=== PATIENT | male | born 1960 | race Caucasian/White ===

== ENCOUNTER 2020-10-06 12:37 | Inpatient (IN) | payer OTHER, SELFPAY ==
[2020-10-06 12:46] VITALS: BP 130/81; PULSE 120; RESP 50; TEMP 36.9; O2SAT 98
--- NOTE | 2020-10-06 12:48 | ECG_ITS ---
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 Measurements Intervals Bradley Rate: 115 P: 72 MA: 121 QRS: 34 QRSD: 98 T: 13 QT: 333 QTc: 462 Interpretive Statements SINUS TACHYCARDIA NONSPECIFIC ST & T-WAVE ABNORMALITY ABNORMAL RHYTHM ECG No previous ECG available for comparison Electronically Signed On 10-11-2020 16:14:26 CDT by Jerica Morrison M.D. [id number]
--- NOTE | 2020-10-06 12:48 | XR_ITS ---
WS: [id number] Portable AP upright chest, 10/06/2020 Clinical Data: AMS, COVID + Comparison: None. Findings: There is patchy opacity in the periphery of the left lower lung which may represent acute p neumonia. The right lung is clear. The heart is normal. The pulmonary vascularity is not increased. N o pneumothorax is seen. XR/XR chest 1V portable [id number] Impression: Patchy opacity in periphery of left lower lobe which may represent acute pneumo quirino.
--- NOTE | 2020-10-06 12:50 | CT_ITS ---
WS: [id number] CT scan of the head, 10/06/2020 Clinical Data: AMS Comparison: None. DLP: 1001.[address] scans at [facility] use at least one of these dose optimization techniques: automat ed exposure control; mA and/or kV adjustment per patient size (includes targeted exams where dose is matched to clinical indication); or iterative reconstruction. Findings: The ventricular system is minimally enlarged without shift. No recent infarct or hemorrhage is seen. There are no abnormal intracerebral masses. The cerebellum and brainstem are not remarkable. Bony windows of the skull and skull base show no fractures or erosions. The mastoid air cells, strategy intern al auditory canals, sella turcica, intraorbital contents, and paranasal sinuses are unremarkable. CT/CT head wo con* [id number] Impression: Minimal cerebral atrophy.
[2020-10-06 12:54] VITALS: PULSE 109; O2SAT 96
[2020-10-06 12:54] LABS: ABG PCO2 33.5 mmHg (35-45); ABG PH Result 7.26 (7.35-7.45); Arterial Blood Gas Hematocrit 55.2 % (42-52); Blood Gas Allen Test Pos; Blood Gas Sample Site Brachial, left; Blood Gas Sample Type Arterial; HCO3 ABG 14.9 mmol/L (22-26); Oxygen Device NRB
--- NOTE | 2020-10-06 13:18 | ED_ITS ---
Documented by User: Avni Hutton MD, [facility] [place] 10/20/20 11:32 HPI - SOB/Dyspnea General: Chief Complaint: General Medical Stated Complaint: COVID +/ RESPIRATORY DISTRESS Time Seen by Provider: 10/06/20 12:47 Source: EMS Mode of arrival: EMS Limitations: altered mental status History of Present Illness: HPI Narrative: Patient is a 59-year-old male who was brought into the emergency department via EMS. When EMS arrived at the patient's place of residence police and fire department had been called prior to they have been called. Patient has a who is currently on admission and he is intubated in this facility for COVID-19. Therefore the patient has been home alone. He was also diagnosed with COVID-19, last known well is unknown. He was altered and unable to give a history to EMS and he is currently the same way now. He does not answer to any questions and moans when he is touched or moved. He was hypoxic when EMS arrived and brought him in on a nonrebreather and his oxygen saturations were in the 90s on the nonrebreather. Review of Systems General: Reports: ROS unobtainable due to mental status [facility] ED PFSH: Social History Smoking and tobacco status: never smoked Alcohol intake: never Physical Exam Const: COMMON NORMALS: no acute distress, average body habitus, no limitations, healthy appearing and well nourished HENMT: COMMON NORMALS: normocephalic, atraumatic and moist oral mucous membranes HEAD & SCALP: normocephalic and atraumatic Eye: COMMON NORMALS: Equal, round and reactive pupils present, EOMs intact bilaterally, conjunctivae normal and no scleral icterus CONJUNCTIVA: Yes conjunctivae normal PUPIL: Yes Equal, round and reactive pupils present Neck/C-Spine: COMMON NORMALS: no meningeal signs and no JVD Resp: COMMON NORMALS: normal respiratory effort, No retractions, No use of accessory muscles, clear to auscultation bilaterally and percussion normal EFFORT & INSPECTION: Yes tachypneic AUSCULTATION: clear to auscultation bilaterally PERCUSSION: percussion normal Cardio: COMMON NORMALS: no JVD, regular rhythm, S1 normal heart sound present, S2 normal heart sound present, No gallops present (Cardio), No clicks present (Cardio), No murmurs present (Cardio), No rub (Cardio) and Peripheral pulses 2+ throughout RATE: tachycardic RHYTHM: regular rhythm HEART SOUNDS: S1 normal heart sound present and S2 normal heart sound present PERIPHERAL PULSES: Peripheral pulses 2+ throughout GI: COMMON NORMALS: Normal to inspection, nondistended, normoactive bowel sounds present, Soft to palpation, non-tender, No hepatosplenomegaly present, no masses and no bruits PALPATION: Yes Soft to palpation and Yes No hepatosplenomegaly present Extremity: COMMON NORMALS: normal to inspection, full ROM, capillary refill normal, no calf tenderness and no pedal edema Neuro: SENSORIUM/ORIENTATION: Yes somnolent MENINGEAL SIGNS: Yes no meningeal signs Skin: COMMON NORMALS: no rashes or lesions noted, no wounds, turgor normal, no jaundice, no petechiae and no mottling GENERAL SKIN EXAM: no rashes or lesions noted and turgor normal Course Vital Signs: Vital signs: Vital Signs Temperature 106.5 F H 10/08/20 02:00 Pulse Rate 0 L 10/08/20 02:30 Respiratory Rate 23 H 10/08/20 00:00 Blood Pressure 72/41 10/08/20 02:00 Pulse Oximetry 85 L 10/08/20 02:00 MDM - SOB/Dyspnea MDM Narrative: Medical decision making narrative: This 60-year-old male was brought into the emergency department by EMS in respiratory distress. A pparently his is an admission in this facility with COVID-19 and is intubated. The patient had been causing his via video conference. When he had not called in a few days the nurses in the intensive care unit got concerned on how the police do a well check visit on the patient. They found him altered, naked and on the floor and in respiratory distress. An ambulance was called and he was brought into this facility. He tested positive for Covid and he was pretty sick, requiring oxygenation via nonrebreather at first and then heated high flow. Patient is signed out to Dr. Gar to assume care. Medical Records: Attestation: I reviewed the patient's medical records. Lab Data: Attestation: I reviewed the patient's lab results. Labs: Lab Results 10/06/20 10/06/20 10/06/20 Range/Units 12:20 12:20 12:20 WBC 25.1 H (4.0-10.0) 10^3/ uL RBC 6.78 H (4.1-5.3) 10^6/u L Hgb 19.5 H (11.7-16.6) g/dL Hct 68.5 H* (42.0-52.0) % MCV 101.0 H (80-94) fL MCH 28.8 (28.0-34.0) pg MCHC 28.5 L (30.0-36.0) g/dL RDW 13.8 (12.1-15.1) % Plt Count 415 H (130-400) 10^3/c mm MPV 12.3 H (7.4-10.4) fL Neut % (Auto) 85.1 % Lymph % (Auto) 6.3 % [place] % (Auto) 6.3 % Eos % (Auto) 0.0 % Baso % (Auto) 0.4 % Neut # (Auto) 21.34 H (1.8-7.7) 10^3/u L Lymph # (Auto) 1.6 (0.8-4.8) 10^3/u L [place] # (Auto) 1.6 H (0.2-0.9) 10^3/u L Eos # (Auto) 0.0 (0.0-0.8) 10^3/u L Baso # (Auto) 0.1 (0.0-0.1) 10^3/u L Nucleated RBC % (a uto) 0 % Nucleated RBCs # 0.0 /100WBC Fibrinogen (174-498) mg/dL D-Dimer (0-0.59) ug/mIFE U Specimen Type Sample Site ABG pH (7.35-7.45) ABG pCO2 (35-45) mmHg ABG pO2 (80.0-100.0) mmH g ABG HCO3 (22-26) mmol/L ABG O2 Saturation ABG Base Excess (-2.0-2.0) mmol/ L Desmond Test A-a O2 Gradient (5-10) mmHg Hematocrit (42-52) % Hgb O2 Saturation (95-100) % Carboxyhemoglobin (0.4-20.1) %THgb Methemoglobin (0.4-1.5) % Total Hemoglobin (14-18) g/dL Ionized Calcium (1.1-1.4) mmol/L O2 Delivery Device O2 Liters/Min % Transcription Manager ID Sodium 164 H* (136-145) mmol/L Potassium 4.2 (3.5-5.1) mmol/L Chloride 116 H (98-107) mmol/L Carbon Dioxide 17 L (22-29) mmol/L Anion Gap 35.2 H (5-19) BUN 66 H (8-23) mg/dL Creatinine 2.2 H (0.7-1.2) mg/dL GFR Calculation 30.5 L (90-130) mL/min Glucose 1232 H* (65-115) mg/dL POC Glucose (70-110) mg/dL Calculated Osmolal ity 420 H (285-295) mOsm/k g Lactic Acid (0.5-2.2) mmol/L Lactic Acid (Sepsi s) (0.5-2.2) mmol/L Lactate (0.5-2.2) mmol/L Calcium 11.2 H (8.5-10.5) mg/dL Total Bilirubin 0.4 (0.15-1.2) mg/dL AST 24 (0-40) U/L ALT 29 (0-41) U/L Alkaline Phosphata se 172 H (40-130) IU/L Creatine Kinase 375 H* (39-308) U/L C-Reactive Protein 88.8 H (0.0-4.9) mg/L NT-Pro-B Natriuret Pep 364 H (0-125) pg/mL Total Protein 8.6 (6.6-8.7) g/dL Albumin 4.2 (3.5-5.2) g/dL Globulin 4.4 (1.3-4.6) g/dL Procalcitonin 0.45 (0-0.5) ng/mL Urine Color (Yellow) Urine Appearance (CLEAR) Urine pH (5-7) Ur Specific Gravit y (1.005-1.030) Urine Protein (Negative) Urine Glucose (UA) (Normal) Urine Ketones (Negative) Urine Blood (Negative) Urine Nitrate (Negative) Urine Bilirubin (Negative) Urine Urobilinogen (Negative) mg/dL Ur Leukocyte Lucie ase (Negative) Urine RBC (0-2) /hpf Urine WBC (0-5) /hpf Ur Squamous Epith Cells (0-5) /hpf Amorphous Sediment Urine Bacteria (NONE) /hpf Serum Ketones Negative (Negative) SARS-CoV-2 Ag (Rap id) (Negative) 10/06/20 10/06/20 10/06/20 Range/Units 12:40 13:35 13:35 WBC (4.0-10.0) 10^3/ uL RBC (4.1-5.3) 10^6/u L Hgb (11.7-16.6) g/dL Hct (42.0-52.0) % MCV (80-94) fL MCH (28.0-34.0) pg MCHC (30.0-36.0) g/dL RDW (12.1-15.1) % Plt Count (130-400) 10^3/c mm MPV (7.4-10.4) fL Neut % (Auto) % Lymph % (Auto) % [place] % (Auto) % Eos % (Auto) % Baso % (Auto) % Neut # (Auto) (1.8-7.7) 10^3/u L Lymph # (Auto) (0.8-4.8) 10^3/u L [place] # (Auto) (0.2-0.9) 10^3/u L Eos # (Auto) (0.0-0.8) 10^3/u L Baso # (Auto) (0.0-0.1) 10^3/u L Nucleated RBC % (a uto) % Nucleated RBCs # /100WBC Fibrinogen (174-498) mg/dL D-Dimer (0-0.59) ug/mIFE U Specimen Type Arterial Sample Site Brachial, left ABG pH 7.26 L (7.35-7.45) ABG pCO2 33.5 L (35-45) mmHg ABG pO2 166.0 H (80.0-100.0) mmH g ABG HCO3 14.9 L (22-26) mmol/L ABG O2 Saturation ABG Base Excess -11.0 L (-2.0-2.0) mmol/ L Desmond Test Pos A-a O2 Gradient (5-10) mmHg Hematocrit 55.2 H (42-52) % Hgb O2 Saturation (95-100) % Carboxyhemoglobin (0.4-20.1) %THgb Methemoglobin (0.4-1.5) % Total Hemoglobin (14-18) g/dL Ionized Calcium (1.1-1.4) mmol/L O2 Delivery Device Nrb O2 Liters/Min 15.0 % Transcription Manager ID Duner Sodium (136-145) mmol/L Potassium (3.5-5.1) mmol/L Chloride (98-107) mmol/L Carbon Dioxide (22-29) mmol/L Anion Gap (5-19) BUN (8-23) mg/dL Creatinine (0.7-1.2) mg/dL GFR Calculation (90-130) mL/min Glucose (65-115) mg/dL POC Glucose (70-110) mg/dL Calculated Osmolal ity (285-295) mOsm/k g Lactic Acid 5.4 H* (0.5-2.2) mmol/L Lactic Acid (Sepsi s) (0.5-2.2) mmol/L Lactate (0.5-2.2) mmol/L Calcium (8.5-10.5) mg/dL Total Bilirubin (0.15-1.2) mg/dL AST (0-40) U/L ALT (0-41) U/L Alkaline Phosphata se (40-130) IU/L Creatine Kinase (39-308) U/L C-Reactive Protein (0.0-4.9) mg/L NT-Pro-B Natriuret Pep (0-125) pg/mL Total Protein (6.6-8.7) g/dL Albumin (3.5-5.2) g/dL Globulin (1.3-4.6) g/dL Procalcitonin (0-0.5) ng/mL Urine Color Yellow (Yellow) Urine Appearance Clear (CLEAR) Urine pH 5 (5-7) Ur Specific Gravit y 1.005 (1.005-1.030) Urine Protein Neg (Negative) Urine Glucose (UA) 4+ H (Normal) Urine Ketones Negative (Negative) Urine Blood 2+ H (Negative) Urine Nitrate Negative (Negative) Urine Bilirubin Neg (Negative) Urine Urobilinogen Norm (Negative) mg/dL Ur Leukocyte Lucie ase Negative (Negative) Urine RBC 0-4 H (0-2) /hpf Urine WBC None (0-5) /hpf Ur Squamous Epith Cells 0-4 H (0-5) /hpf Amorphous Sediment Not Reportable Urine Bacteria 1+ H (NONE) /hpf Serum Ketones (Negative) SARS-CoV-2 Ag (Rap id) (Negative) 10/06/20 10/06/20 10/06/20 Range/Units 15:04 15:04 16:27 WBC (4.0-10.0) 10^3/ uL RBC (4.1-5.3) 10^6/u L Hgb (11.7-16.6) g/dL Hct (42.0-52.0) % MCV (80-94) fL MCH (28.0-34.0) pg MCHC (30.0-36.0) g/dL RDW (12.1-15.1) % Plt Count (130-400) 10^3/c mm MPV (7.4-10.4) fL Neut % (Auto) % Lymph % (Auto) % [place] % (Auto) % Eos % (Auto) % Baso % (Auto) % Neut # (Auto) (1.8-7.7) 10^3/u L Lymph # (Auto) (0.8-4.8) 10^3/u L [place] # (Auto) (0.2-0.9) 10^3/u L Eos # (Auto) (0.0-0.8) 10^3/u L Baso # (Auto) (0.0-0.1) 10^3/u L Nucleated RBC % (a uto) % Nucleated RBCs # /100WBC Fibrinogen 438 (174-498) mg/dL D-Dimer >= 20.00 H (0-0.59) ug/mIFE U Specimen Type Sample Site ABG pH (7.35-7.45) ABG pCO2 (35-45) mmHg ABG pO2 (80.0-100.0) mmH g ABG HCO3 (22-26) mmol/L ABG O2 Saturation ABG Base Excess (-2.0-2.0) mmol/ L Desmond Test A-a O2 Gradient (5-10) mmHg Hematocrit (42-52) % Hgb O2 Saturation (95-100) % Carboxyhemoglobin (0.4-20.1) %THgb Methemoglobin (0.4-1.5) % Total Hemoglobin (14-18) g/dL Ionized Calcium (1.1-1.4) mmol/L O2 Delivery Device O2 Liters/Min % Transcription Manager ID Sodium (136-145) mmol/L Potassium (3.5-5.1) mmol/L Chloride (98-107) mmol/L Carbon Dioxide (22-29) mmol/L Anion Gap (5-19) BUN (8-23) mg/dL Creatinine (0.7-1.2) mg/dL GFR Calculation (90-130) mL/min Glucose (65-115) mg/dL POC Glucose > 600 H* (70-110) mg/dL Calculated Osmolal ity (285-295) mOsm/k g Lactic Acid (0.5-2.2) mmol/L Lactic Acid (Sepsi s) 4.8 H* (0.5-2.2) mmol/L Lactate (0.5-2.2) mmol/L Calcium (8.5-10.5) mg/dL Total Bilirubin (0.15-1.2) mg/dL AST (0-40) U/L ALT (0-41) U/L Alkaline Phosphata se (40-130) IU/L Creatine Kinase (39-308) U/L C-Reactive Protein (0.0-4.9) mg/L NT-Pro-B Natriuret Pep (0-125) pg/mL Total Protein (6.6-8.7) g/dL Albumin (3.5-5.2) g/dL Globulin (1.3-4.6) g/dL Procalcitonin (0-0.5) ng/mL Urine Color (Yellow) Urine Appearance (CLEAR) Urine pH (5-7) Ur Specific Gravit y (1.005-1.030) Urine Protein (Negative) Urine Glucose (UA) (Normal) Urine Ketones (Negative) Urine Blood (Negative) Urine Nitrate (Negative) Urine Bilirubin (Negative) Urine Urobilinogen (Negative) mg/dL Ur Leukocyte Lucie ase (Negative) Urine RBC (0-2) /hpf Urine WBC (0-5) /hpf Ur Squamous Epith Cells (0-5) /hpf Amorphous Sediment Urine Bacteria (NONE) /hpf Serum Ketones (Negative) SARS-CoV-2 Ag (Rap id) (Negative) 10/06/20 10/06/20 10/06/20 Range/Units 17:34 17:35 18:31 WBC (4.0-10.0) 10^3/ uL RBC (4.1-5.3) 10^6/u L Hgb (11.7-16.6) g/dL Hct (42.0-52.0) % MCV (80-94) fL MCH (28.0-34.0) pg MCHC (30.0-36.0) g/dL RDW (12.1-15.1) % Plt Count (130-400) 10^3/c mm MPV (7.4-10.4) fL Neut % (Auto) % Lymph % (Auto) % [place] % (Auto) % Eos % (Auto) % Baso % (Auto) % Neut # (Auto) (1.8-7.7) 10^3/u L Lymph # (Auto) (0.8-4.8) 10^3/u L [place] # (Auto) (0.2-0.9) 10^3/u L Eos # (Auto) (0.0-0.8) 10^3/u L Baso # (Auto) (0.0-0.1) 10^3/u L Nucleated RBC % (a uto) % Nucleated RBCs # /100WBC Fibrinogen (174-498) mg/dL D-Dimer (0-0.59) ug/mIFE U Specimen Type Sample Site ABG pH (7.35-7.45) ABG pCO2 (35-45) mmHg ABG pO2 (80.0-100.0) mmH g ABG HCO3 (22-26) mmol/L ABG O2 Saturation ABG Base Excess (-2.0-2.0) mmol/ L Desmond Test A-a O2 Gradient (5-10) mmHg Hematocrit (42-52) % Hgb O2 Saturation (95-100) % Carboxyhemoglobin (0.4-20.1) %THgb Methemoglobin (0.4-1.5) % Total Hemoglobin (14-18) g/dL Ionized Calcium (1.1-1.4) mmol/L O2 Delivery Device O2 Liters/Min % Transcription Manager ID Sodium (136-145) mmol/L Potassium (3.5-5.1) mmol/L Chloride (98-107) mmol/L Carbon Dioxide (22-29) mmol/L Anion Gap (5-19) BUN (8-23) mg/dL Creatinine (0.7-1.2) mg/dL GFR Calculation (90-130) mL/min Glucose (65-115) mg/dL POC Glucose > 600 H* > 600 H* (70-110) mg/dL Calculated Osmolal ity (285-295) mOsm/k g Lactic Acid (0.5-2.2) mmol/L Lactic Acid (Sepsi s) (0.5-2.2) mmol/L Lactate (0.5-2.2) mmol/L Calcium (8.5-10.5) mg/dL Total Bilirubin (0.15-1.2) mg/dL AST (0-40) U/L ALT (0-41) U/L Alkaline Phosphata se (40-130) IU/L Creatine Kinase (39-308) U/L C-Reactive Protein (0.0-4.9) mg/L NT-Pro-B Natriuret Pep (0-125) pg/mL Total Protein (6.6-8.7) g/dL Albumin (3.5-5.2) g/dL Globulin (1.3-4.6) g/dL Procalcitonin (0-0.5) ng/mL Urine Color (Yellow) Urine Appearance (CLEAR) Urine pH (5-7) Ur Specific Gravit y (1.005-1.030) Urine Protein (Negative) Urine Glucose (UA) (Normal) Urine Ketones (Negative) Urine Blood (Negative) Urine Nitrate (Negative) Urine Bilirubin (Negative) Urine Urobilinogen (Negative) mg/dL Ur Leukocyte Lucie ase (Negative) Urine RBC (0-2) /hpf Urine WBC (0-5) /hpf Ur Squamous Epith Cells (0-5) /hpf Amorphous Sediment Urine Bacteria (NONE) /hpf Serum Ketones (Negative) SARS-CoV-2 Ag (Rap id) Negative (Negative) 10/06/20 10/06/20 10/06/20 Range/Units 18:43 18:43 20:05 WBC (4.0-10.0) 10^3/ uL RBC (4.1-5.3) 10^6/u L Hgb (11.7-16.6) g/dL Hct (42.0-52.0) % MCV (80-94) fL MCH (28.0-34.0) pg MCHC (30.0-36.0) g/dL RDW (12.1-15.1) % Plt Count (130-400) 10^3/c mm MPV (7.4-10.4) fL Neut % (Auto) % Lymph % (Auto) % [place] % (Auto) % Eos % (Auto) % Baso % (Auto) % Neut # (Auto) (1.8-7.7) 10^3/u L Lymph # (Auto) (0.8-4.8) 10^3/u L [place] # (Auto) (0.2-0.9) 10^3/u L Eos # (Auto) (0.0-0.8) 10^3/u L Baso # (Auto) (0.0-0.1) 10^3/u L Nucleated RBC % (a uto) % Nucleated RBCs # /100WBC Fibrinogen (174-498) mg/dL D-Dimer (0-0.59) ug/mIFE U Specimen Type Sample Site ABG pH (7.35-7.45) ABG pCO2 (35-45) mmHg ABG pO2 (80.0-100.0) mmH g ABG HCO3 (22-26) mmol/L ABG O2 Saturation ABG Base Excess (-2.0-2.0) mmol/ L Desmond Test A-a O2 Gradient (5-10) mmHg Hematocrit (42-52) % Hgb O2 Saturation (95-100) % Carboxyhemoglobin (0.4-20.1) %THgb Methemoglobin (0.4-1.5) % Total Hemoglobin (14-18) g/dL Ionized Calcium (1.1-1.4) mmol/L O2 Delivery Device O2 Liters/Min % Transcription Manager ID Sodium 169 H* (136-145) mmol/L Potassium 2.5 L* D (3.5-5.1) mmol/L Chloride 133 H (98-107) mmol/L Carbon Dioxide 17 L (22-29) mmol/L Anion Gap 21.5 H (5-19) BUN 65 H (8-23) mg/dL Creatinine 2.5 H (0.7-1.2) mg/dL GFR Calculation 26.3 L (90-130) mL/min Glucose 902 H* (65-115) mg/dL POC Glucose > 600 H* (70-110) mg/dL Calculated Osmolal ity 411 H (285-295) mOsm/k g Lactic Acid 4.9 H* (0.5-2.2) mmol/L Lactic Acid (Sepsi s) (0.5-2.2) mmol/L Lactate (0.5-2.2) mmol/L Calcium 9.0 (8.5-10.5) mg/dL Total Bilirubin (0.15-1.2) mg/dL AST (0-40) U/L ALT (0-41) U/L Alkaline Phosphata se (40-130) IU/L Creatine Kinase (39-308) U/L C-Reactive Protein (0.0-4.9) mg/L NT-Pro-B Natriuret Pep (0-125) pg/mL Total Protein (6.6-8.7) g/dL Albumin (3.5-5.2) g/dL Globulin (1.3-4.6) g/dL Procalcitonin (0-0.5) ng/mL Urine Color (Yellow) Urine Appearance (CLEAR) Urine pH (5-7) Ur Specific Gravit y (1.005-1.030) Urine Protein (Negative) Urine Glucose (UA) (Normal) Urine Ketones (Negative) Urine Blood (Negative) Urine Nitrate (Negative) Urine Bilirubin (Negative) Urine Urobilinogen (Negative) mg/dL Ur Leukocyte Lucie ase (Negative) Urine RBC (0-2) /hpf Urine WBC (0-5) /hpf Ur Squamous Epith Cells (0-5) /hpf Amorphous Sediment Urine Bacteria (NONE) /hpf Serum Ketones (Negative) SARS-CoV-2 Ag (Rap id) (Negative) 10/06/20 10/06/20 10/06/20 Range/Units 21:08 21:21 22:15 WBC (4.0-10.0) 10^3/ uL RBC (4.1-5.3) 10^6/u L Hgb (11.7-16.6) g/dL Hct (42.0-52.0) % MCV (80-94) fL MCH (28.0-34.0) pg MCHC (30.0-36.0) g/dL RDW (12.1-15.1) % Plt Count (130-400) 10^3/c mm MPV (7.4-10.4) fL Neut % (Auto) % Lymph % (Auto) % [place] % (Auto) % Eos % (Auto) % Baso % (Auto) % Neut # (Auto) (1.8-7.7) 10^3/u L Lymph # (Auto) (0.8-4.8) 10^3/u L [place] # (Auto) (0.2-0.9) 10^3/u L Eos # (Auto) (0.0-0.8) 10^3/u L Baso # (Auto) (0.0-0.1) 10^3/u L Nucleated RBC % (a uto) % Nucleated RBCs # /100WBC Fibrinogen (174-498) mg/dL D-Dimer (0-0.59) ug/mIFE U Specimen Type Arterial Sample Site Brachial, left ABG pH 7.35 (7.35-7.45) ABG pCO2 33.4 L (35-45) mmHg ABG pO2 103.0 H (80.0-100.0) mmH g ABG HCO3 18.4 L (22-26) mmol/L ABG O2 Saturation ABG Base Excess -6.1 L (-2.0-2.0) mmol/ L Desmond Test N/a A-a O2 Gradient (5-10) mmHg Hematocrit 48.4 (42-52) % Hgb O2 Saturation (95-100) % Carboxyhemoglobin (0.4-20.1) %THgb Methemoglobin (0.4-1.5) % Total Hemoglobin (14-18) g/dL Ionized Calcium (1.1-1.4) mmol/L O2 Delivery Device Nc O2 Liters/Min 10.0 % Transcription Manager ID Harkr Sodium (136-145) mmol/L Potassium (3.5-5.1) mmol/L Chloride (98-107) mmol/L Carbon Dioxide (22-29) mmol/L Anion Gap (5-19) BUN (8-23) mg/dL Creatinine (0.7-1.2) mg/dL GFR Calculation (90-130) mL/min Glucose (65-115) mg/dL POC Glucose > 600 H* (70-110) mg/dL Calculated Osmolal ity (285-295) mOsm/k g Lactic Acid (0.5-2.2) mmol/L Lactic Acid (Sepsi s) 5.2 H* (0.5-2.2) mmol/L Lactate (0.5-2.2) mmol/L Calcium (8.5-10.5) mg/dL Total Bilirubin (0.15-1.2) mg/dL AST (0-40) U/L ALT (0-41) U/L Alkaline Phosphata se (40-130) IU/L Creatine Kinase (39-308) U/L C-Reactive Protein (0.0-4.9) mg/L NT-Pro-B Natriuret Pep (0-125) pg/mL Total Protein (6.6-8.7) g/dL Albumin (3.5-5.2) g/dL Globulin (1.3-4.6) g/dL Procalcitonin (0-0.5) ng/mL Urine Color (Yellow) Urine Appearance (CLEAR) Urine pH (5-7) Ur Specific Gravit y (1.005-1.030) Urine Protein (Negative) Urine Glucose (UA) (Normal) Urine Ketones (Negative) Urine Blood (Negative) Urine Nitrate (Negative) Urine Bilirubin (Negative) Urine Urobilinogen (Negative) mg/dL Ur Leukocyte Lucie ase (Negative) Urine RBC (0-2) /hpf Urine WBC (0-5) /hpf Ur Squamous Epith Cells (0-5) /hpf Amorphous Sediment Urine Bacteria (NONE) /hpf Serum Ketones (Negative) SARS-CoV-2 Ag (Rap id) (Negative) 10/06/20 10/07/20 10/07/20 Range/Units 22:50 00:10 01:56 WBC (4.0-10.0) 10^3/ uL RBC (4.1-5.3) 10^6/u L Hgb (11.7-16.6) g/dL Hct (42.0-52.0) % MCV (80-94) fL MCH (28.0-34.0) pg MCHC (30.0-36.0) g/dL RDW (12.1-15.1) % Plt Count (130-400) 10^3/c mm MPV (7.4-10.4) fL Neut % (Auto) % Lymph % (Auto) % [place] % (Auto) % Eos % (Auto) % Baso % (Auto) % Neut # (Auto) (1.8-7.7) 10^3/u L Lymph # (Auto) (0.8-4.8) 10^3/u L [place] # (Auto) (0.2-0.9) 10^3/u L Eos # (Auto) (0.0-0.8) 10^3/u L Baso # (Auto) (0.0-0.1) 10^3/u L Nucleated RBC % (a uto) % Nucleated RBCs # /100WBC Fibrinogen (174-498) mg/dL D-Dimer (0-0.59) ug/mIFE U Specimen Type Sample Site ABG pH (7.35-7.45) ABG pCO2 (35-45) mmHg ABG pO2 (80.0-100.0) mmH g ABG HCO3 (22-26) mmol/L ABG O2 Saturation ABG Base Excess (-2.0-2.0) mmol/ L Desmond Test A-a O2 Gradient (5-10) mmHg Hematocrit (42-52) % Hgb O2 Saturation (95-100) % Carboxyhemoglobin (0.4-20.1) %THgb Methemoglobin (0.4-1.5) % Total Hemoglobin (14-18) g/dL Ionized Calcium (1.1-1.4) mmol/L O2 Delivery Device O2 Liters/Min % Transcription Manager ID Sodium (136-145) mmol/L Potassium (3.5-5.1) mmol/L Chloride (98-107) mmol/L Carbon Dioxide (22-29) mmol/L Anion Gap (5-19) BUN (8-23) mg/dL Creatinine (0.7-1.2) mg/dL GFR Calculation (90-130) mL/min Glucose (65-115) mg/dL POC Glucose > 600 H* > 600 H* 356 H (70-110) mg/dL Calculated Osmolal ity (285-295) mOsm/k g Lactic Acid (0.5-2.2) mmol/L Lactic Acid (Sepsi s) (0.5-2.2) mmol/L Lactate (0.5-2.2) mmol/L Calcium (8.5-10.5) mg/dL Total Bilirubin (0.15-1.2) mg/dL AST (0-40) U/L ALT (0-41) U/L Alkaline Phosphata se (40-130) IU/L Creatine Kinase (39-308) U/L C-Reactive Protein (0.0-4.9) mg/L NT-Pro-B Natriuret Pep (0-125) pg/mL Total Protein (6.6-8.7) g/dL Albumin (3.5-5.2) g/dL Globulin (1.3-4.6) g/dL Procalcitonin (0-0.5) ng/mL Urine Color (Yellow) Urine Appearance (CLEAR) Urine pH (5-7) Ur Specific Gravit y (1.005-1.030) Urine Protein (Negative) Urine Glucose (UA) (Normal) Urine Ketones (Negative) Urine Blood (Negative) Urine Nitrate (Negative) Urine Bilirubin (Negative) Urine Urobilinogen (Negative) mg/dL Ur Leukocyte Lucie ase (Negative) Urine RBC (0-2) /hpf Urine WBC (0-5) /hpf Ur Squamous Epith Cells (0-5) /hpf Amorphous Sediment Urine Bacteria (NONE) /hpf Serum Ketones (Negative) SARS-CoV-2 Ag (Rap id) (Negative) 10/07/20 10/07/20 10/07/20 Range/Units 02:46 03:19 05:00 WBC 24.0 H (4.0-10.0) 10^3/ uL RBC 5.70 H (4.1-5.3) 10^6/u L Hgb 16.5 (11.7-16.6) g/dL Hct 52.9 H (42.0-52.0) % MCV 92.8 D (80-94) fL MCH 28.9 (28.0-34.0) pg MCHC 31.2 D (30.0-36.0) g/dL RDW 13.7 (12.1-15.1) % Plt Count 250 (130-400) 10^3/c mm MPV 11.3 H (7.4-10.4) fL Neut % (Auto) 83.1 % Lymph % (Auto) 6.2 % [place] % (Auto) 9.3 % Eos % (Auto) 0.0 % Baso % (Auto) 0.3 % Neut # (Auto) 19.93 H (1.8-7.7) 10^3/u L Lymph # (Auto) 1.5 (0.8-4.8) 10^3/u L [place] # (Auto) 2.2 H (0.2-0.9) 10^3/u L Eos # (Auto) 0.0 (0.0-0.8) 10^3/u L Baso # (Auto) 0.1 (0.0-0.1) 10^3/u L Nucleated RBC % (a uto) 0 % Nucleated RBCs # 0.0 /100WBC Fibrinogen (174-498) mg/dL D-Dimer (0-0.59) ug/mIFE U Specimen Type Sample Site ABG pH (7.35-7.45) ABG pCO2 (35-45) mmHg ABG pO2 (80.0-100.0) mmH g ABG HCO3 (22-26) mmol/L ABG O2 Saturation ABG Base Excess (-2.0-2.0) mmol/ L Desmond Test A-a O2 Gradient (5-10) mmHg Hematocrit (42-52) % Hgb O2 Saturation (95-100) % Carboxyhemoglobin (0.4-20.1) %THgb Methemoglobin (0.4-1.5) % Total Hemoglobin (14-18) g/dL Ionized Calcium (1.1-1.4) mmol/L O2 Delivery Device O2 Liters/Min % Transcription Manager ID Sodium (136-145) mmol/L Potassium (3.5-5.1) mmol/L Chloride (98-107) mmol/L Carbon Dioxide (22-29) mmol/L Anion Gap (5-19) BUN (8-23) mg/dL Creatinine (0.7-1.2) mg/dL GFR Calculation (90-130) mL/min Glucose (65-115) mg/dL POC Glucose 208 H 196 H (70-110) mg/dL Calculated Osmolal ity (285-295) mOsm/k g Lactic Acid (0.5-2.2) mmol/L Lactic Acid (Sepsi s) (0.5-2.2) mmol/L Lactate (0.5-2.2) mmol/L Calcium (8.5-10.5) mg/dL Total Bilirubin (0.15-1.2) mg/dL AST (0-40) U/L ALT (0-41) U/L Alkaline Phosphata se (40-130) IU/L Creatine Kinase (39-308) U/L C-Reactive Protein (0.0-4.9) mg/L NT-Pro-B Natriuret Pep (0-125) pg/mL Total Protein (6.6-8.7) g/dL Albumin (3.5-5.2) g/dL Globulin (1.3-4.6) g/dL Procalcitonin (0-0.5) ng/mL Urine Color (Yellow) Urine Appearance (CLEAR) Urine pH (5-7) Ur Specific Gravit y (1.005-1.030) Urine Protein (Negative) Urine Glucose (UA) (Normal) Urine Ketones (Negative) Urine Blood (Negative) Urine Nitrate (Negative) Urine Bilirubin (Negative) Urine Urobilinogen (Negative) mg/dL Ur Leukocyte Lucie ase (Negative) Urine RBC (0-2) /hpf Urine WBC (0-5) /hpf Ur Squamous Epith Cells (0-5) /hpf Amorphous Sediment Urine Bacteria (NONE) /hpf Serum Ketones (Negative) SARS-CoV-2 Ag (Rap id) (Negative) 10/07/20 10/07/20 10/07/20 Range/Units 05:00 05:00 05:08 WBC (4.0-10.0) 10^3/ uL RBC (4.1-5.3) 10^6/u L Hgb (11.7-16.6) g/dL Hct (42.0-52.0) % MCV (80-94) fL MCH (28.0-34.0) pg MCHC (30.0-36.0) g/dL RDW (12.1-15.1) % Plt Count (130-400) 10^3/c mm MPV (7.4-10.4) fL Neut % (Auto) % Lymph % (Auto) % [place] % (Auto) % Eos % (Auto) % Baso % (Auto) % Neut # (Auto) (1.8-7.7) 10^3/u L Lymph # (Auto) (0.8-4.8) 10^3/u L [place] # (Auto) (0.2-0.9) 10^3/u L Eos # (Auto) (0.0-0.8) 10^3/u L Baso # (Auto) (0.0-0.1) 10^3/u L Nucleated RBC % (a uto) % Nucleated RBCs # /100WBC Fibrinogen (174-498) mg/dL D-Dimer (0-0.59) ug/mIFE U Specimen Type Sample Site ABG pH (7.35-7.45) ABG pCO2 (35-45) mmHg ABG pO2 (80.0-100.0) mmH g ABG HCO3 (22-26) mmol/L ABG O2 Saturation ABG Base Excess (-2.0-2.0) mmol/ L Desmond Test A-a O2 Gradient (5-10) mmHg Hematocrit (42-52) % Hgb O2 Saturation (95-100) % Carboxyhemoglobin (0.4-20.1) %THgb Methemoglobin (0.4-1.5) % Total Hemoglobin (14-18) g/dL Ionized Calcium (1.1-1.4) mmol/L O2 Delivery Device O2 Liters/Min % Transcription Manager ID Sodium > 181 H* (136-145) mmol/L Potassium 4.4 (3.5-5.1) mmol/L Chloride > 143 H (98-107) mmol/L Carbon Dioxide 22 (22-29) mmol/L Anion Gap 20.4 H (5-19) BUN 60 H (8-23) mg/dL Creatinine 2.1 H (0.7-1.2) mg/dL GFR Calculation 32.2 L (90-130) mL/min Glucose 223 H (65-115) mg/dL POC Glucose 528 H* (70-110) mg/dL Calculated Osmolal ity 396 H (285-295) mOsm/k g Lactic Acid (0.5-2.2) mmol/L Lactic Acid (Sepsi s) (0.5-2.2) mmol/L Lactate 3.2 H (0.5-2.2) mmol/L Calcium 8.6 (8.5-10.5) mg/dL Total Bilirubin (0.15-1.2) mg/dL AST (0-40) U/L ALT (0-41) U/L Alkaline Phosphata se (40-130) IU/L Creatine Kinase (39-308) U/L C-Reactive Protein (0.0-4.9) mg/L NT-Pro-B Natriuret Pep (0-125) pg/mL Total Protein (6.6-8.7) g/dL Albumin (3.5-5.2) g/dL Globulin (1.3-4.6) g/dL Procalcitonin (0-0.5) ng/mL Urine Color (Yellow) Urine Appearance (CLEAR) Urine pH (5-7) Ur Specific Gravit y (1.005-1.030) Urine Protein (Negative) Urine Glucose (UA) (Normal) Urine Ketones (Negative) Urine Blood (Negative) Urine Nitrate (Negative) Urine Bilirubin (Negative) Urine Urobilinogen (Negative) mg/dL Ur Leukocyte Lucie ase (Negative) Urine RBC (0-2) /hpf Urine WBC (0-5) /hpf Ur Squamous Epith Cells (0-5) /hpf Amorphous Sediment Urine Bacteria (NONE) /hpf Serum Ketones (Negative) SARS-CoV-2 Ag (Rap id) (Negative) 10/07/20 10/07/20 10/07/20 Range/Units 05:34 05:46 06:51 WBC (4.0-10.0) 10^3/ uL RBC (4.1-5.3) 10^6/u L Hgb (11.7-16.6) g/dL Hct (42.0-52.0) % MCV (80-94) fL MCH (28.0-34.0) pg MCHC (30.0-36.0) g/dL RDW (12.1-15.1) % Plt Count (130-400) 10^3/c mm MPV (7.4-10.4) fL Neut % (Auto) % Lymph % (Auto) % [place] % (Auto) % Eos % (Auto) % Baso % (Auto) % Neut # (Auto) (1.8-7.7) 10^3/u L Lymph # (Auto) (0.8-4.8) 10^3/u L [place] # (Auto) (0.2-0.9) 10^3/u L Eos # (Auto) (0.0-0.8) 10^3/u L Baso # (Auto) (0.0-0.1) 10^3/u L Nucleated RBC % (a uto) % Nucleated RBCs # /100WBC Fibrinogen (174-498) mg/dL D-Dimer (0-0.59) ug/mIFE U Specimen Type Arterial Sample Site Brachial, left ABG pH 7.34 L (7.35-7.45) ABG pCO2 40.3 (35-45) mmHg ABG pO2 51.7 L (80.0-100.0) mmH g ABG HCO3 21.6 L (22-26) mmol/L ABG O2 Saturation 87.6 ABG Base Excess -4.0 L (-2.0-2.0) mmol/ L Desmond Test N/a A-a O2 Gradient 6.4 (5-10) mmHg Hematocrit 52.9 H (42-52) % Hgb O2 Saturation 86.4 L (95-100) % Carboxyhemoglobin 0.7 (0.4-20.1) %THgb Methemoglobin 0.7 (0.4-1.5) % Total Hemoglobin 17.3 (14-18) g/dL Ionized Calcium 1.2 (1.1-1.4) mmol/L O2 Delivery Device Nrb O2 Liters/Min 15.0 % Transcription Manager ID Harkr Sodium > 182.0 H (136-145) mmol/L Potassium 3.9 (3.5-5.1) mmol/L Chloride (98-107) mmol/L Carbon Dioxide (22-29) mmol/L Anion Gap (5-19) BUN (8-23) mg/dL Creatinine (0.7-1.2) mg/dL GFR Calculation (90-130) mL/min Glucose 252.0 H (65-115) mg/dL POC Glucose 209 H 217 H (70-110) mg/dL Calculated Osmolal ity (285-295) mOsm/k g Lactic Acid (0.5-2.2) mmol/L Lactic Acid (Sepsi s) (0.5-2.2) mmol/L Lactate (0.5-2.2) mmol/L Calcium (8.5-10.5) mg/dL Total Bilirubin (0.15-1.2) mg/dL AST (0-40) U/L ALT (0-41) U/L Alkaline Phosphata se (40-130) IU/L Creatine Kinase (39-308) U/L C-Reactive Protein (0.0-4.9) mg/L NT-Pro-B Natriuret Pep (0-125) pg/mL Total Protein (6.6-8.7) g/dL Albumin (3.5-5.2) g/dL Globulin (1.3-4.6) g/dL Procalcitonin (0-0.5) ng/mL Urine Color (Yellow) Urine Appearance (CLEAR) Urine pH (5-7) Ur Specific Gravit y (1.005-1.030) Urine Protein (Negative) Urine Glucose (UA) (Normal) Urine Ketones (Negative) Urine Blood (Negative) Urine Nitrate (Negative) Urine Bilirubin (Negative) Urine Urobilinogen (Negative) mg/dL Ur Leukocyte Lucie ase (Negative) Urine RBC (0-2) /hpf Urine WBC (0-5) /hpf Ur Squamous Epith Cells (0-5) /hpf Amorphous Sediment Urine Bacteria (NONE) /hpf Serum Ketones (Negative) SARS-CoV-2 Ag (Rap id) (Negative) 10/07/20 10/07/20 10/07/20 Range/Units 07:18 08:29 09:05 WBC (4.0-10.0) 10^3/ uL RBC (4.1-5.3) 10^6/u L Hgb (11.7-16.6) g/dL Hct (42.0-52.0) % MCV (80-94) fL MCH (28.0-34.0) pg MCHC (30.0-36.0) g/dL RDW (12.1-15.1) % Plt Count (130-400) 10^3/c mm MPV (7.4-10.4) fL Neut % (Auto) % Lymph % (Auto) % [place] % (Auto) % Eos % (Auto) % Baso % (Auto) % Neut # (Auto) (1.8-7.7) 10^3/u L Lymph # (Auto) (0.8-4.8) 10^3/u L [place] # (Auto) (0.2-0.9) 10^3/u L Eos # (Auto) (0.0-0.8) 10^3/u L Baso # (Auto) (0.0-0.1) 10^3/u L Nucleated RBC % (a uto) % Nucleated RBCs # /100WBC Fibrinogen (174-498) mg/dL D-Dimer (0-0.59) ug/mIFE U Specimen Type Sample Site ABG pH (7.35-7.45) ABG pCO2 (35-45) mmHg ABG pO2 (80.0-100.0) mmH g ABG HCO3 (22-26) mmol/L ABG O2 Saturation ABG Base Excess (-2.0-2.0) mmol/ L Desmond Test A-a O2 Gradient (5-10) mmHg Hematocrit (42-52) % Hgb O2 Saturation (95-100) % Carboxyhemoglobin (0.4-20.1) %THgb Methemoglobin (0.4-1.5) % Total Hemoglobin (14-18) g/dL Ionized Calcium (1.1-1.4) mmol/L O2 Delivery Device O2 Liters/Min % Transcription Manager ID Sodium 176 H* (136-145) mmol/L Potassium 4.0 (3.5-5.1) mmol/L Chloride > 145 H (98-107) mmol/L Carbon Dioxide 17 L (22-29) mmol/L Anion Gap 18.0 (5-19) BUN 61 H (8-23) mg/dL Creatinine 2.3 H (0.7-1.2) mg/dL GFR Calculation 29.0 L (90-130) mL/min Glucose 231 H (65-115) mg/dL POC Glucose 362 H 270 H (70-110) mg/dL Calculated Osmolal ity 387 H (285-295) mOsm/k g Lactic Acid (0.5-2.2) mmol/L Lactic Acid (Sepsi s) (0.5-2.2) mmol/L Lactate (0.5-2.2) mmol/L Calcium 7.3 L (8.5-10.5) mg/dL Total Bilirubin (0.15-1.2) mg/dL AST (0-40) U/L ALT (0-41) U/L Alkaline Phosphata se (40-130) IU/L Creatine Kinase (39-308) U/L C-Reactive Protein (0.0-4.9) mg/L NT-Pro-B Natriuret Pep (0-125) pg/mL Total Protein (6.6-8.7) g/dL Albumin (3.5-5.2) g/dL Globulin (1.3-4.6) g/dL Procalcitonin (0-0.5) ng/mL Urine Color (Yellow) Urine Appearance (CLEAR) Urine pH (5-7) Ur Specific Gravit y (1.005-1.030) Urine Protein (Negative) Urine Glucose (UA) (Normal) Urine Ketones (Negative) Urine Blood (Negative) Urine Nitrate (Negative) Urine Bilirubin (Negative) Urine Urobilinogen (Negative) mg/dL Ur Leukocyte Lucie ase (Negative) Urine RBC (0-2) /hpf Urine WBC (0-5) /hpf Ur Squamous Epith Cells (0-5) /hpf Amorphous Sediment Urine Bacteria (NONE) /hpf Serum Ketones (Negative) SARS-CoV-2 Ag (Rap id) (Negative) Discharge Plan Discharge Patient Disposition: Admitted As Inpatient Admit Provider: Tomer Murray Clinical Impression: Acidosis, lactic, Acute hypoxemic respiratory failure, HHS (hypothenar hammer syndrome), Acute hypernatremia, MOF (multiple organ failure) Condition: Stable Sign Out Sign Out Data: Patient Sign Out occurred on 10/07/20 at 00:40. Patient's care was discussed, and care was transferred from to Jorge Gar MD. Patient Sign Out occurred on 10/07/20 at 08:33. Patient's care was discussed, and care was transferred from to Mateus Mata MD. Coding Level of Care Code ED [facility] for Chg Fwd Exam Comprehensive Documented by User: Jorge Gar MD 10/07/20 07:42 HPI - SOB/Dyspnea General: Chief Complaint: General Medical Stated Complaint: COVID +/ RESPIRATORY DISTRESS Time Seen by Provider: 10/06/20 12:47 PFSH ED PFSH: Social History Smoking and tobacco status: never smoked Alcohol intake: never Procedures Central Line Placement Left Femoral: Time Out Performed: Yes Patient Placed on Monitor/Pulse Ox: Yes Prep: mask Central Line Prep: Povidone-Iodine 1% Ultrasound Used for Placement: Yes Central Line Lumen Inserted: triple Post Procedure: sutured in place, good blood return and all ports aspirated, flushed, capped Post Procedure X-Ray: tip of catheter in good position Patient Tolerated Procedure: well Complications: none Intubation Time out performed: Yes sedative: Ketamine Mg Given: 100 paralytic: Succinylcholine Mg Given: 100 Laryngoscope: Estela ET Tube Size: 7 ET Tube Uncuffed: No Tube Secured Location: lips (24) Tube Placement Confirmation: visualized tube passing through cords and equal breath sounds bilaterally Patient Tolerated Procedure: well Intubation Complications: none Course Vital Signs: Vital signs: Vital Signs Temperature 106.5 F H 10/08/20 02:00 Pulse Rate 0 L 10/08/20 02:30 Respiratory Rate 23 H 10/08/20 00:00 Blood Pressure 72/41 10/08/20 02:00 Pulse Oximetry 85 L 10/08/20 02:00 MDM - SOB/Dyspnea MDM Narrative: Medical decision making narrative: 60-year-old male with history of type 2 diabetes presenting to the emergency room with concerns of altered mental status and hypoxemic respiratory distress. Patient was seen normal 2 to 3 days ago. Case was assumed from Dr. Shah. Lactic acid of 5.4 now improving to 4.9, sodium increased from 169 to 181+. His chest is consistent with possible LLQ pneumonia. Received 5 L of IVF, insulin drip, ceftriaxone and azithromycin. Around 6:50 AM patient began experiencing increased work of breathing, with O2 sat 85% on 15 L nonrebreather. Decision was made for emergent intubation. Sent to patient, patient had blood pressure of 80/40, continues to be persistently tachycardic to the 120s. Multiple attempts to reach the son to clarify code status and next of kin were unsuccessful. Case signed out to Dr. Javier Mata Lab Data: Labs: Lab Results 10/06/20 10/06/20 10/06/20 Range/Units 12:20 12:20 12:20 WBC 25.1 H (4.0-10.0) 10^3/ uL RBC 6.78 H (4.1-5.3) 10^6/u L Hgb 19.5 H (11.7-16.6) g/dL Hct 68.5 H* (42.0-52.0) % MCV 101.0 H (80-94) fL MCH 28.8 (28.0-34.0) pg MCHC 28.5 L (30.0-36.0) g/dL RDW 13.8 (12.1-15.1) % Plt Count 415 H (130-400) 10^3/c mm MPV 12.3 H (7.4-10.4) fL Neut % (Auto) 85.1 % Lymph % (Auto) 6.3 % [place] % (Auto) 6.3 % Eos % (Auto) 0.0 % Baso % (Auto) 0.4 % Neut # (Auto) 21.34 H (1.8-7.7) 10^3/u L Lymph # (Auto) 1.6 (0.8-4.8) 10^3/u L [place] # (Auto) 1.6 H (0.2-0.9) 10^3/u L Eos # (Auto) 0.0 (0.0-0.8) 10^3/u L Baso # (Auto) 0.1 (0.0-0.1) 10^3/u L Nucleated RBC % (a uto) 0 % Nucleated RBCs # 0.0 /100WBC Fibrinogen (174-498) mg/dL D-Dimer (0-0.59) ug/mIFE U Specimen Type Sample Site ABG pH (7.35-7.45) ABG pCO2 (35-45) mmHg ABG pO2 (80.0-100.0) mmH g ABG HCO3 (22-26) mmol/L ABG O2 Saturation ABG Base Excess (-2.0-2.0) mmol/ L Desmond Test A-a O2 Gradient (5-10) mmHg Hematocrit (42-52) % Hgb O2 Saturation (95-100) % Carboxyhemoglobin (0.4-20.1) %THgb Methemoglobin (0.4-1.5) % Total Hemoglobin (14-18) g/dL Ionized Calcium (1.1-1.4) mmol/L O2 Delivery Device O2 Liters/Min % Transcription Manager ID Sodium 164 H* (136-145) mmol/L Potassium 4.2 (3.5-5.1) mmol/L Chloride 116 H (98-107) mmol/L Carbon Dioxide 17 L (22-29) mmol/L Anion Gap 35.2 H (5-19) BUN 66 H (8-23) mg/dL Creatinine 2.2 H (0.7-1.2) mg/dL GFR Calculation 30.5 L (90-130) mL/min Glucose 1232 H* (65-115) mg/dL POC Glucose (70-110) mg/dL Calculated Osmolal ity 420 H (285-295) mOsm/k g Lactic Acid (0.5-2.2) mmol/L Lactic Acid (Sepsi s) (0.5-2.2) mmol/L Lactate (0.5-2.2) mmol/L Calcium 11.2 H (8.5-10.5) mg/dL Total Bilirubin 0.4 (0.15-1.2) mg/dL AST 24 (0-40) U/L ALT 29 (0-41) U/L Alkaline Phosphata se 172 H (40-130) IU/L Creatine Kinase 375 H* (39-308) U/L C-Reactive Protein 88.8 H (0.0-4.9) mg/L NT-Pro-B Natriuret Pep 364 H (0-125) pg/mL Total Protein 8.6 (6.6-8.7) g/dL Albumin 4.2 (3.5-5.2) g/dL Globulin 4.4 (1.3-4.6) g/dL Procalcitonin 0.45 (0-0.5) ng/mL Urine Color (Yellow) Urine Appearance (CLEAR) Urine pH (5-7) Ur Specific Gravit y (1.005-1.030) Urine Protein (Negative) Urine Glucose (UA) (Normal) Urine Ketones (Negative) Urine Blood (Negative) Urine Nitrate (Negative) Urine Bilirubin (Negative) Urine Urobilinogen (Negative) mg/dL Ur Leukocyte Lucie ase (Negative) Urine RBC (0-2) /hpf Urine WBC (0-5) /hpf Ur Squamous Epith Cells (0-5) /hpf Amorphous Sediment Urine Bacteria (NONE) /hpf Serum Ketones Negative (Negative) SARS-CoV-2 Ag (Rap id) (Negative) 10/06/20 10/06/20 10/06/20 Range/Units 12:40 13:35 13:35 WBC (4.0-10.0) 10^3/ uL RBC (4.1-5.3) 10^6/u L Hgb (11.7-16.6) g/dL Hct (42.0-52.0) % MCV (80-94) fL MCH (28.0-34.0) pg MCHC (30.0-36.0) g/dL RDW (12.1-15.1) % Plt Count (130-400) 10^3/c mm MPV (7.4-10.4) fL Neut % (Auto) % Lymph % (Auto) % [place] % (Auto) % Eos % (Auto) % Baso % (Auto) % Neut # (Auto) (1.8-7.7) 10^3/u L Lymph # (Auto) (0.8-4.8) 10^3/u L [place] # (Auto) (0.2-0.9) 10^3/u L Eos # (Auto) (0.0-0.8) 10^3/u L Baso # (Auto) (0.0-0.1) 10^3/u L Nucleated RBC % (a uto) % Nucleated RBCs # /100WBC Fibrinogen (174-498) mg/dL D-Dimer (0-0.59) ug/mIFE U Specimen Type Arterial Sample Site Brachial, left ABG pH 7.26 L (7.35-7.45) ABG pCO2 33.5 L (35-45) mmHg ABG pO2 166.0 H (80.0-100.0) mmH g ABG HCO3 14.9 L (22-26) mmol/L ABG O2 Saturation ABG Base Excess -11.0 L (-2.0-2.0) mmol/ L Desmond Test Pos A-a O2 Gradient (5-10) mmHg Hematocrit 55.2 H (42-52) % Hgb O2 Saturation (95-100) % Carboxyhemoglobin (0.4-20.1) %THgb Methemoglobin (0.4-1.5) % Total Hemoglobin (14-18) g/dL Ionized Calcium (1.1-1.4) mmol/L O2 Delivery Device Nrb O2 Liters/Min 15.0 % Transcription Manager ID Duner Sodium (136-145) mmol/L Potassium (3.5-5.1) mmol/L Chloride (98-107) mmol/L Carbon Dioxide (22-29) mmol/L Anion Gap (5-19) BUN (8-23) mg/dL Creatinine (0.7-1.2) mg/dL GFR Calculation (90-130) mL/min Glucose (65-115) mg/dL POC Glucose (70-110) mg/dL Calculated Osmolal ity (285-295) mOsm/k g Lactic Acid 5.4 H* (0.5-2.2) mmol/L Lactic Acid (Sepsi s) (0.5-2.2) mmol/L Lactate (0.5-2.2) mmol/L Calcium (8.5-10.5) mg/dL Total Bilirubin (0.15-1.2) mg/dL AST (0-40) U/L ALT (0-41) U/L Alkaline Phosphata se (40-130) IU/L Creatine Kinase (39-308) U/L C-Reactive Protein (0.0-4.9) mg/L NT-Pro-B Natriuret Pep (0-125) pg/mL Total Protein (6.6-8.7) g/dL Albumin (3.5-5.2) g/dL Globulin (1.3-4.6) g/dL Procalcitonin (0-0.5) ng/mL Urine Color Yellow (Yellow) Urine Appearance Clear (CLEAR) Urine pH 5 (5-7) Ur Specific Gravit y 1.005 (1.005-1.030) Urine Protein Neg (Negative) Urine Glucose (UA) 4+ H (Normal) Urine Ketones Negative (Negative) Urine Blood 2+ H (Negative) Urine Nitrate Negative (Negative) Urine Bilirubin Neg (Negative) Urine Urobilinogen Norm (Negative) mg/dL Ur Leukocyte Lucie ase Negative (Negative) Urine RBC 0-4 H (0-2) /hpf Urine WBC None (0-5) /hpf Ur Squamous Epith Cells 0-4 H (0-5) /hpf Amorphous Sediment Not Reportable Urine Bacteria 1+ H (NONE) /hpf Serum Ketones (Negative) SARS-CoV-2 Ag (Rap id) (Negative) 10/06/20 10/06/20 10/06/20 Range/Units 15:04 15:04 16:27 WBC (4.0-10.0) 10^3/ uL RBC (4.1-5.3) 10^6/u L Hgb (11.7-16.6) g/dL Hct (42.0-52.0) % MCV (80-94) fL MCH (28.0-34.0) pg MCHC (30.0-36.0) g/dL RDW (12.1-15.1) % Plt Count (130-400) 10^3/c mm MPV (7.4-10.4) fL Neut % (Auto) % Lymph % (Auto) % [place] % (Auto) % Eos % (Auto) % Baso % (Auto) % Neut # (Auto) (1.8-7.7) 10^3/u L Lymph # (Auto) (0.8-4.8) 10^3/u L [place] # (Auto) (0.2-0.9) 10^3/u L Eos # (Auto) (0.0-0.8) 10^3/u L Baso # (Auto) (0.0-0.1) 10^3/u L Nucleated RBC % (a uto) % Nucleated RBCs # /100WBC Fibrinogen 438 (174-498) mg/dL D-Dimer >= 20.00 H (0-0.59) ug/mIFE U Specimen Type Sample Site ABG pH (7.35-7.45) ABG pCO2 (35-45) mmHg ABG pO2 (80.0-100.0) mmH g ABG HCO3 (22-26) mmol/L ABG O2 Saturation ABG Base Excess (-2.0-2.0) mmol/ L Desmond Test A-a O2 Gradient (5-10) mmHg Hematocrit (42-52) % Hgb O2 Saturation (95-100) % Carboxyhemoglobin (0.4-20.1) %THgb Methemoglobin (0.4-1.5) % Total Hemoglobin (14-18) g/dL Ionized Calcium (1.1-1.4) mmol/L O2 Delivery Device O2 Liters/Min % Transcription Manager ID Sodium (136-145) mmol/L Potassium (3.5-5.1) mmol/L Chloride (98-107) mmol/L Carbon Dioxide (22-29) mmol/L Anion Gap (5-19) BUN (8-23) mg/dL Creatinine (0.7-1.2) mg/dL GFR Calculation (90-130) mL/min Glucose (65-115) mg/dL POC Glucose > 600 H* (70-110) mg/dL Calculated Osmolal ity (285-295) mOsm/k g Lactic Acid (0.5-2.2) mmol/L Lactic Acid (Sepsi s) 4.8 H* (0.5-2.2) mmol/L Lactate (0.5-2.2) mmol/L Calcium (8.5-10.5) mg/dL Total Bilirubin (0.15-1.2) mg/dL AST (0-40) U/L ALT (0-41) U/L Alkaline Phosphata se (40-130) IU/L Creatine Kinase (39-308) U/L C-Reactive Protein (0.0-4.9) mg/L NT-Pro-B Natriuret Pep (0-125) pg/mL Total Protein (6.6-8.7) g/dL Albumin (3.5-5.2) g/dL Globulin (1.3-4.6) g/dL Procalcitonin (0-0.5) ng/mL Urine Color (Yellow) Urine Appearance (CLEAR) Urine pH (5-7) Ur Specific Gravit y (1.005-1.030) Urine Protein (Negative) Urine Glucose (UA) (Normal) Urine Ketones (Negative) Urine Blood (Negative) Urine Nitrate (Negative) Urine Bilirubin (Negative) Urine Urobilinogen (Negative) mg/dL Ur Leukocyte Lucie ase (Negative) Urine RBC (0-2) /hpf Urine WBC (0-5) /hpf Ur Squamous Epith Cells (0-5) /hpf Amorphous Sediment Urine Bacteria (NONE) /hpf Serum Ketones (Negative) SARS-CoV-2 Ag (Rap id) (Negative) 10/06/20 10/06/20 10/06/20 Range/Units 17:34 17:35 18:31 WBC (4.0-10.0) 10^3/ uL RBC (4.1-5.3) 10^6/u L Hgb (11.7-16.6) g/dL Hct (42.0-52.0) % MCV (80-94) fL MCH (28.0-34.0) pg MCHC (30.0-36.0) g/dL RDW (12.1-15.1) % Plt Count (130-400) 10^3/c mm MPV (7.4-10.4) fL Neut % (Auto) % Lymph % (Auto) % [place] % (Auto) % Eos % (Auto) % Baso % (Auto) % Neut # (Auto) (1.8-7.7) 10^3/u L Lymph # (Auto) (0.8-4.8) 10^3/u L [place] # (Auto) (0.2-0.9) 10^3/u L Eos # (Auto) (0.0-0.8) 10^3/u L Baso # (Auto) (0.0-0.1) 10^3/u L Nucleated RBC % (a uto) % Nucleated RBCs # /100WBC Fibrinogen (174-498) mg/dL D-Dimer (0-0.59) ug/mIFE U Specimen Type Sample Site ABG pH (7.35-7.45) ABG pCO2 (35-45) mmHg ABG pO2 (80.0-100.0) mmH g ABG HCO3 (22-26) mmol/L ABG O2 Saturation ABG Base Excess (-2.0-2.0) mmol/ L Desmond Test A-a O2 Gradient (5-10) mmHg Hematocrit (42-52) % Hgb O2 Saturation (95-100) % Carboxyhemoglobin (0.4-20.1) %THgb Methemoglobin (0.4-1.5) % Total Hemoglobin (14-18) g/dL Ionized Calcium (1.1-1.4) mmol/L O2 Delivery Device O2 Liters/Min % Transcription Manager ID Sodium (136-145) mmol/L Potassium (3.5-5.1) mmol/L Chloride (98-107) mmol/L Carbon Dioxide (22-29) mmol/L Anion Gap (5-19) BUN (8-23) mg/dL Creatinine (0.7-1.2) mg/dL GFR Calculation (90-130) mL/min Glucose (65-115) mg/dL POC Glucose > 600 H* > 600 H* (70-110) mg/dL Calculated Osmolal ity (285-295) mOsm/k g Lactic Acid (0.5-2.2) mmol/L Lactic Acid (Sepsi s) (0.5-2.2) mmol/L Lactate (0.5-2.2) mmol/L Calcium (8.5-10.5) mg/dL Total Bilirubin (0.15-1.2) mg/dL AST (0-40) U/L ALT (0-41) U/L Alkaline Phosphata se (40-130) IU/L Creatine Kinase (39-308) U/L C-Reactive Protein (0.0-4.9) mg/L NT-Pro-B Natriuret Pep (0-125) pg/mL Total Protein (6.6-8.7) g/dL Albumin (3.5-5.2) g/dL Globulin (1.3-4.6) g/dL Procalcitonin (0-0.5) ng/mL Urine Color (Yellow) Urine Appearance (CLEAR) Urine pH (5-7) Ur Specific Gravit y (1.005-1.030) Urine Protein (Negative) Urine Glucose (UA) (Normal) Urine Ketones (Negative) Urine Blood (Negative) Urine Nitrate (Negative) Urine Bilirubin (Negative) Urine Urobilinogen (Negative) mg/dL Ur Leukocyte Lucie ase (Negative) Urine RBC (0-2) /hpf Urine WBC (0-5) /hpf Ur Squamous Epith Cells (0-5) /hpf Amorphous Sediment Urine Bacteria (NONE) /hpf Serum Ketones (Negative) SARS-CoV-2 Ag (Rap id) Negative (Negative) 10/06/20 10/06/20 10/06/20 Range/Units 18:43 18:43 20:05 WBC (4.0-10.0) 10^3/ uL RBC (4.1-5.3) 10^6/u L Hgb (11.7-16.6) g/dL Hct (42.0-52.0) % MCV (80-94) fL MCH (28.0-34.0) pg MCHC (30.0-36.0) g/dL RDW (12.1-15.1) % Plt Count (130-400) 10^3/c mm MPV (7.4-10.4) fL Neut % (Auto) % Lymph % (Auto) % [place] % (Auto) % Eos % (Auto) % Baso % (Auto) % Neut # (Auto) (1.8-7.7) 10^3/u L Lymph # (Auto) (0.8-4.8) 10^3/u L [place] # (Auto) (0.2-0.9) 10^3/u L Eos # (Auto) (0.0-0.8) 10^3/u L Baso # (Auto) (0.0-0.1) 10^3/u L Nucleated RBC % (a uto) % Nucleated RBCs # /100WBC Fibrinogen (174-498) mg/dL D-Dimer (0-0.59) ug/mIFE U Specimen Type Sample Site ABG pH (7.35-7.45) ABG pCO2 (35-45) mmHg ABG pO2 (80.0-100.0) mmH g ABG HCO3 (22-26) mmol/L ABG O2 Saturation ABG Base Excess (-2.0-2.0) mmol/ L Desmond Test A-a O2 Gradient (5-10) mmHg Hematocrit (42-52) % Hgb O2 Saturation (95-100) % Carboxyhemoglobin (0.4-20.1) %THgb Methemoglobin (0.4-1.5) % Total Hemoglobin (14-18) g/dL Ionized Calcium (1.1-1.4) mmol/L O2 Delivery Device O2 Liters/Min % Transcription Manager ID Sodium 169 H* (136-145) mmol/L Potassium 2.5 L* D (3.5-5.1) mmol/L Chloride 133 H (98-107) mmol/L Carbon Dioxide 17 L (22-29) mmol/L Anion Gap 21.5 H (5-19) BUN 65 H (8-23) mg/dL Creatinine 2.5 H (0.7-1.2) mg/dL GFR Calculation 26.3 L (90-130) mL/min Glucose 902 H* (65-115) mg/dL POC Glucose > 600 H* (70-110) mg/dL Calculated Osmolal ity 411 H (285-295) mOsm/k g Lactic Acid 4.9 H* (0.5-2.2) mmol/L Lactic Acid (Sepsi s) (0.5-2.2) mmol/L Lactate (0.5-2.2) mmol/L Calcium 9.0 (8.5-10.5) mg/dL Total Bilirubin (0.15-1.2) mg/dL AST (0-40) U/L ALT (0-41) U/L Alkaline Phosphata se (40-130) IU/L Creatine Kinase (39-308) U/L C-Reactive Protein (0.0-4.9) mg/L NT-Pro-B Natriuret Pep (0-125) pg/mL Total Protein (6.6-8.7) g/dL Albumin (3.5-5.2) g/dL Globulin (1.3-4.6) g/dL Procalcitonin (0-0.5) ng/mL Urine Color (Yellow) Urine Appearance (CLEAR) Urine pH (5-7) Ur Specific Gravit y (1.005-1.030) Urine Protein (Negative) Urine Glucose (UA) (Normal) Urine Ketones (Negative) Urine Blood (Negative) Urine Nitrate (Negative) Urine Bilirubin (Negative) Urine Urobilinogen (Negative) mg/dL Ur Leukocyte Lucie ase (Negative) Urine RBC (0-2) /hpf Urine WBC (0-5) /hpf Ur Squamous Epith Cells (0-5) /hpf Amorphous Sediment Urine Bacteria (NONE) /hpf Serum Ketones (Negative) SARS-CoV-2 Ag (Rap id) (Negative) 10/06/20 10/06/20 10/06/20 Range/Units 21:08 21:21 22:15 WBC (4.0-10.0) 10^3/ uL RBC (4.1-5.3) 10^6/u L Hgb (11.7-16.6) g/dL Hct (42.0-52.0) % MCV (80-94) fL MCH (28.0-34.0) pg MCHC (30.0-36.0) g/dL RDW (12.1-15.1) % Plt Count (130-400) 10^3/c mm MPV (7.4-10.4) fL Neut % (Auto) % Lymph % (Auto) % [place] % (Auto) % Eos % (Auto) % Baso % (Auto) % Neut # (Auto) (1.8-7.7) 10^3/u L Lymph # (Auto) (0.8-4.8) 10^3/u L [place] # (Auto) (0.2-0.9) 10^3/u L Eos # (Auto) (0.0-0.8) 10^3/u L Baso # (Auto) (0.0-0.1) 10^3/u L Nucleated RBC % (a uto) % Nucleated RBCs # /100WBC Fibrinogen (174-498) mg/dL D-Dimer (0-0.59) ug/mIFE U Specimen Type Arterial Sample Site Brachial, left ABG pH 7.35 (7.35-7.45) ABG pCO2 33.4 L (35-45) mmHg ABG pO2 103.0 H (80.0-100.0) mmH g ABG HCO3 18.4 L (22-26) mmol/L ABG O2 Saturation ABG Base Excess -6.1 L (-2.0-2.0) mmol/ L Desmond Test N/a A-a O2 Gradient (5-10) mmHg Hematocrit 48.4 (42-52) % Hgb O2 Saturation (95-100) % Carboxyhemoglobin (0.4-20.1) %THgb Methemoglobin (0.4-1.5) % Total Hemoglobin (14-18) g/dL Ionized Calcium (1.1-1.4) mmol/L O2 Delivery Device Nc O2 Liters/Min 10.0 % Transcription Manager ID Harkr Sodium (136-145) mmol/L Potassium (3.5-5.1) mmol/L Chloride (98-107) mmol/L Carbon Dioxide (22-29) mmol/L Anion Gap (5-19) BUN (8-23) mg/dL Creatinine (0.7-1.2) mg/dL GFR Calculation (90-130) mL/min Glucose (65-115) mg/dL POC Glucose > 600 H* (70-110) mg/dL Calculated Osmolal ity (285-295) mOsm/k g Lactic Acid (0.5-2.2) mmol/L Lactic Acid (Sepsi s) 5.2 H* (0.5-2.2) mmol/L Lactate (0.5-2.2) mmol/L Calcium (8.5-10.5) mg/dL Total Bilirubin (0.15-1.2) mg/dL AST (0-40) U/L ALT (0-41) U/L Alkaline Phosphata se (40-130) IU/L Creatine Kinase (39-308) U/L C-Reactive Protein (0.0-4.9) mg/L NT-Pro-B Natriuret Pep (0-125) pg/mL Total Protein (6.6-8.7) g/dL Albumin (3.5-5.2) g/dL Globulin (1.3-4.6) g/dL Procalcitonin (0-0.5) ng/mL Urine Color (Yellow) Urine Appearance (CLEAR) Urine pH (5-7) Ur Specific Gravit y (1.005-1.030) Urine Protein (Negative) Urine Glucose (UA) (Normal) Urine Ketones (Negative) Urine Blood (Negative) Urine Nitrate (Negative) Urine Bilirubin (Negative) Urine Urobilinogen (Negative) mg/dL Ur Leukocyte Lucie ase (Negative) Urine RBC (0-2) /hpf Urine WBC (0-5) /hpf Ur Squamous Epith Cells (0-5) /hpf Amorphous Sediment Urine Bacteria (NONE) /hpf Serum Ketones (Negative) SARS-CoV-2 Ag (Rap id) (Negative) 10/06/20 10/07/20 10/07/20 Range/Units 22:50 00:10 01:56 WBC (4.0-10.0) 10^3/ uL RBC (4.1-5.3) 10^6/u L Hgb (11.7-16.6) g/dL Hct (42.0-52.0) % MCV (80-94) fL MCH (28.0-34.0) pg MCHC (30.0-36.0) g/dL RDW (12.1-15.1) % Plt Count (130-400) 10^3/c mm MPV (7.4-10.4) fL Neut % (Auto) % Lymph % (Auto) % [place] % (Auto) % Eos % (Auto) % Baso % (Auto) % Neut # (Auto) (1.8-7.7) 10^3/u L Lymph # (Auto) (0.8-4.8) 10^3/u L [place] # (Auto) (0.2-0.9) 10^3/u L Eos # (Auto) (0.0-0.8) 10^3/u L Baso # (Auto) (0.0-0.1) 10^3/u L Nucleated RBC % (a uto) % Nucleated RBCs # /100WBC Fibrinogen (174-498) mg/dL D-Dimer (0-0.59) ug/mIFE U Specimen Type Sample Site ABG pH (7.35-7.45) ABG pCO2 (35-45) mmHg ABG pO2 (80.0-100.0) mmH g ABG HCO3 (22-26) mmol/L ABG O2 Saturation ABG Base Excess (-2.0-2.0) mmol/ L Desmond Test A-a O2 Gradient (5-10) mmHg Hematocrit (42-52) % Hgb O2 Saturation (95-100) % Carboxyhemoglobin (0.4-20.1) %THgb Methemoglobin (0.4-1.5) % Total Hemoglobin (14-18) g/dL Ionized Calcium (1.1-1.4) mmol/L O2 Delivery Device O2 Liters/Min % Transcription Manager ID Sodium (136-145) mmol/L Potassium (3.5-5.1) mmol/L Chloride (98-107) mmol/L Carbon Dioxide (22-29) mmol/L Anion Gap (5-19) BUN (8-23) mg/dL Creatinine (0.7-1.2) mg/dL GFR Calculation (90-130) mL/min Glucose (65-115) mg/dL POC Glucose > 600 H* > 600 H* 356 H (70-110) mg/dL Calculated Osmolal ity (285-295) mOsm/k g Lactic Acid (0.5-2.2) mmol/L Lactic Acid (Sepsi s) (0.5-2.2) mmol/L Lactate (0.5-2.2) mmol/L Calcium (8.5-10.5) mg/dL Total Bilirubin (0.15-1.2) mg/dL AST (0-40) U/L ALT (0-41) U/L Alkaline Phosphata se (40-130) IU/L Creatine Kinase (39-308) U/L C-Reactive Protein (0.0-4.9) mg/L NT-Pro-B Natriuret Pep (0-125) pg/mL Total Protein (6.6-8.7) g/dL Albumin (3.5-5.2) g/dL Globulin (1.3-4.6) g/dL Procalcitonin (0-0.5) ng/mL Urine Color (Yellow) Urine Appearance (CLEAR) Urine pH (5-7) Ur Specific Gravit y (1.005-1.030) Urine Protein (Negative) Urine Glucose (UA) (Normal) Urine Ketones (Negative) Urine Blood (Negative) Urine Nitrate (Negative) Urine Bilirubin (Negative) Urine Urobilinogen (Negative) mg/dL Ur Leukocyte Lucie ase (Negative) Urine RBC (0-2) /hpf Urine WBC (0-5) /hpf Ur Squamous Epith Cells (0-5) /hpf Amorphous Sediment Urine Bacteria (NONE) /hpf Serum Ketones (Negative) SARS-CoV-2 Ag (Rap id) (Negative) 10/07/20 10/07/20 10/07/20 Range/Units 02:46 03:19 05:00 WBC 24.0 H (4.0-10.0) 10^3/ uL RBC 5.70 H (4.1-5.3) 10^6/u L Hgb 16.5 (11.7-16.6) g/dL Hct 52.9 H (42.0-52.0) % MCV 92.8 D (80-94) fL MCH 28.9 (28.0-34.0) pg MCHC 31.2 D (30.0-36.0) g/dL RDW 13.7 (12.1-15.1) % Plt Count 250 (130-400) 10^3/c mm MPV 11.3 H (7.4-10.4) fL Neut % (Auto) 83.1 % Lymph % (Auto) 6.2 % [place] % (Auto) 9.3 % Eos % (Auto) 0.0 % Baso % (Auto) 0.3 % Neut # (Auto) 19.93 H (1.8-7.7) 10^3/u L Lymph # (Auto) 1.5 (0.8-4.8) 10^3/u L [place] # (Auto) 2.2 H (0.2-0.9) 10^3/u L Eos # (Auto) 0.0 (0.0-0.8) 10^3/u L Baso # (Auto) 0.1 (0.0-0.1) 10^3/u L Nucleated RBC % (a uto) 0 % Nucleated RBCs # 0.0 /100WBC Fibrinogen (174-498) mg/dL D-Dimer (0-0.59) ug/mIFE U Specimen Type Sample Site ABG pH (7.35-7.45) ABG pCO2 (35-45) mmHg ABG pO2 (80.0-100.0) mmH g ABG HCO3 (22-26) mmol/L ABG O2 Saturation ABG Base Excess (-2.0-2.0) mmol/ L Desmond Test A-a O2 Gradient (5-10) mmHg Hematocrit (42-52) % Hgb O2 Saturation (95-100) % Carboxyhemoglobin (0.4-20.1) %THgb Methemoglobin (0.4-1.5) % Total Hemoglobin (14-18) g/dL Ionized Calcium (1.1-1.4) mmol/L O2 Delivery Device O2 Liters/Min % Transcription Manager ID Sodium (136-145) mmol/L Potassium (3.5-5.1) mmol/L Chloride (98-107) mmol/L Carbon Dioxide (22-29) mmol/L Anion Gap (5-19) BUN (8-23) mg/dL Creatinine (0.7-1.2) mg/dL GFR Calculation (90-130) mL/min Glucose (65-115) mg/dL POC Glucose 208 H 196 H (70-110) mg/dL Calculated Osmolal ity (285-295) mOsm/k g Lactic Acid (0.5-2.2) mmol/L Lactic Acid (Sepsi s) (0.5-2.2) mmol/L Lactate (0.5-2.2) mmol/L Calcium (8.5-10.5) mg/dL Total Bilirubin (0.15-1.2) mg/dL AST (0-40) U/L ALT (0-41) U/L Alkaline Phosphata se (40-130) IU/L Creatine Kinase (39-308) U/L C-Reactive Protein (0.0-4.9) mg/L NT-Pro-B Natriuret Pep (0-125) pg/mL Total Protein (6.6-8.7) g/dL Albumin (3.5-5.2) g/dL Globulin (1.3-4.6) g/dL Procalcitonin (0-0.5) ng/mL Urine Color (Yellow) Urine Appearance (CLEAR) Urine pH (5-7) Ur Specific Gravit y (1.005-1.030) Urine Protein (Negative) Urine Glucose (UA) (Normal) Urine Ketones (Negative) Urine Blood (Negative) Urine Nitrate (Negative) Urine Bilirubin (Negative) Urine Urobilinogen (Negative) mg/dL Ur Leukocyte Lucie ase (Negative) Urine RBC (0-2) /hpf Urine WBC (0-5) /hpf Ur Squamous Epith Cells (0-5) /hpf Amorphous Sediment Urine Bacteria (NONE) /hpf Serum Ketones (Negative) SARS-CoV-2 Ag (Rap id) (Negative) 10/07/20 10/07/20 10/07/20 Range/Units 05:00 05:00 05:08 WBC (4.0-10.0) 10^3/ uL RBC (4.1-5.3) 10^6/u L Hgb (11.7-16.6) g/dL Hct (42.0-52.0) % MCV (80-94) fL MCH (28.0-34.0) pg MCHC (30.0-36.0) g/dL RDW (12.1-15.1) % Plt Count (130-400) 10^3/c mm MPV (7.4-10.4) fL Neut % (Auto) % Lymph % (Auto) % [place] % (Auto) % Eos % (Auto) % Baso % (Auto) % Neut # (Auto) (1.8-7.7) 10^3/u L Lymph # (Auto) (0.8-4.8) 10^3/u L [place] # (Auto) (0.2-0.9) 10^3/u L Eos # (Auto) (0.0-0.8) 10^3/u L Baso # (Auto) (0.0-0.1) 10^3/u L Nucleated RBC % (a uto) % Nucleated RBCs # /100WBC Fibrinogen (174-498) mg/dL D-Dimer (0-0.59) ug/mIFE U Specimen Type Sample Site ABG pH (7.35-7.45) ABG pCO2 (35-45) mmHg ABG pO2 (80.0-100.0) mmH g ABG HCO3 (22-26) mmol/L ABG O2 Saturation ABG Base Excess (-2.0-2.0) mmol/ L Desmond Test A-a O2 Gradient (5-10) mmHg Hematocrit (42-52) % Hgb O2 Saturation (95-100) % Carboxyhemoglobin (0.4-20.1) %THgb Methemoglobin (0.4-1.5) % Total Hemoglobin (14-18) g/dL Ionized Calcium (1.1-1.4) mmol/L O2 Delivery Device O2 Liters/Min % Transcription Manager ID Sodium > 181 H* (136-145) mmol/L Potassium 4.4 (3.5-5.1) mmol/L Chloride > 143 H (98-107) mmol/L Carbon Dioxide 22 (22-29) mmol/L Anion Gap 20.4 H (5-19) BUN 60 H (8-23) mg/dL Creatinine 2.1 H (0.7-1.2) mg/dL GFR Calculation 32.2 L (90-130) mL/min Glucose 223 H (65-115) mg/dL POC Glucose 528 H* (70-110) mg/dL Calculated Osmolal ity 396 H (285-295) mOsm/k g Lactic Acid (0.5-2.2) mmol/L Lactic Acid (Sepsi s) (0.5-2.2) mmol/L Lactate 3.2 H (0.5-2.2) mmol/L Calcium 8.6 (8.5-10.5) mg/dL Total Bilirubin (0.15-1.2) mg/dL AST (0-40) U/L ALT (0-41) U/L Alkaline Phosphata se (40-130) IU/L Creatine Kinase (39-308) U/L C-Reactive Protein (0.0-4.9) mg/L NT-Pro-B Natriuret Pep (0-125) pg/mL Total Protein (6.6-8.7) g/dL Albumin (3.5-5.2) g/dL Globulin (1.3-4.6) g/dL Procalcitonin (0-0.5) ng/mL Urine Color (Yellow) Urine Appearance (CLEAR) Urine pH (5-7) Ur Specific Gravit y (1.005-1.030) Urine Protein (Negative) Urine Glucose (UA) (Normal) Urine Ketones (Negative) Urine Blood (Negative) Urine Nitrate (Negative) Urine Bilirubin (Negative) Urine Urobilinogen (Negative) mg/dL Ur Leukocyte Lucie ase (Negative) Urine RBC (0-2) /hpf Urine WBC (0-5) /hpf Ur Squamous Epith Cells (0-5) /hpf Amorphous Sediment Urine Bacteria (NONE) /hpf Serum Ketones (Negative) SARS-CoV-2 Ag (Rap id) (Negative) 10/07/20 10/07/20 10/07/20 Range/Units 05:34 05:46 06:51 WBC (4.0-10.0) 10^3/ uL RBC (4.1-5.3) 10^6/u L Hgb (11.7-16.6) g/dL Hct (42.0-52.0) % MCV (80-94) fL MCH (28.0-34.0) pg MCHC (30.0-36.0) g/dL RDW (12.1-15.1) % Plt Count (130-400) 10^3/c mm MPV (7.4-10.4) fL Neut % (Auto) % Lymph % (Auto) % [place] % (Auto) % Eos % (Auto) % Baso % (Auto) % Neut # (Auto) (1.8-7.7) 10^3/u L Lymph # (Auto) (0.8-4.8) 10^3/u L [place] # (Auto) (0.2-0.9) 10^3/u L Eos # (Auto) (0.0-0.8) 10^3/u L Baso # (Auto) (0.0-0.1) 10^3/u L Nucleated RBC % (a uto) % Nucleated RBCs # /100WBC Fibrinogen (174-498) mg/dL D-Dimer (0-0.59) ug/mIFE U Specimen Type Arterial Sample Site Brachial, left ABG pH 7.34 L (7.35-7.45) ABG pCO2 40.3 (35-45) mmHg ABG pO2 51.7 L (80.0-100.0) mmH g ABG HCO3 21.6 L (22-26) mmol/L ABG O2 Saturation 87.6 ABG Base Excess -4.0 L (-2.0-2.0) mmol/ L Desmond Test N/a A-a O2 Gradient 6.4 (5-10) mmHg Hematocrit 52.9 H (42-52) % Hgb O2 Saturation 86.4 L (95-100) % Carboxyhemoglobin 0.7 (0.4-20.1) %THgb Methemoglobin 0.7 (0.4-1.5) % Total Hemoglobin 17.3 (14-18) g/dL Ionized Calcium 1.2 (1.1-1.4) mmol/L O2 Delivery Device Nrb O2 Liters/Min 15.0 % Transcription Manager ID Harkr Sodium > 182.0 H (136-145) mmol/L Potassium 3.9 (3.5-5.1) mmol/L Chloride (98-107) mmol/L Carbon Dioxide (22-29) mmol/L Anion Gap (5-19) BUN (8-23) mg/dL Creatinine (0.7-1.2) mg/dL GFR Calculation (90-130) mL/min Glucose 252.0 H (65-115) mg/dL POC Glucose 209 H 217 H (70-110) mg/dL Calculated Osmolal ity (285-295) mOsm/k g Lactic Acid (0.5-2.2) mmol/L Lactic Acid (Sepsi s) (0.5-2.2) mmol/L Lactate (0.5-2.2) mmol/L Calcium (8.5-10.5) mg/dL Total Bilirubin (0.15-1.2) mg/dL AST (0-40) U/L ALT (0-41) U/L Alkaline Phosphata se (40-130) IU/L Creatine Kinase (39-308) U/L C-Reactive Protein (0.0-4.9) mg/L NT-Pro-B Natriuret Pep (0-125) pg/mL Total Protein (6.6-8.7) g/dL Albumin (3.5-5.2) g/dL Globulin (1.3-4.6) g/dL Procalcitonin (0-0.5) ng/mL Urine Color (Yellow) Urine Appearance (CLEAR) Urine pH (5-7) Ur Specific Gravit y (1.005-1.030) Urine Protein (Negative) Urine Glucose (UA) (Normal) Urine Ketones (Negative) Urine Blood (Negative) Urine Nitrate (Negative) Urine Bilirubin (Negative) Urine Urobilinogen (Negative) mg/dL Ur Leukocyte Lucie ase (Negative) Urine RBC (0-2) /hpf Urine WBC (0-5) /hpf Ur Squamous Epith Cells (0-5) /hpf Amorphous Sediment Urine Bacteria (NONE) /hpf Serum Ketones (Negative) SARS-CoV-2 Ag (Rap id) (Negative) 10/07/20 10/07/20 10/07/20 Range/Units 07:18 08:29 09:05 WBC (4.0-10.0) 10^3/ uL RBC (4.1-5.3) 10^6/u L Hgb (11.7-16.6) g/dL Hct (42.0-52.0) % MCV (80-94) fL MCH (28.0-34.0) pg MCHC (30.0-36.0) g/dL RDW (12.1-15.1) % Plt Count (130-400) 10^3/c mm MPV (7.4-10.4) fL Neut % (Auto) % Lymph % (Auto) % [place] % (Auto) % Eos % (Auto) % Baso % (Auto) % Neut # (Auto) (1.8-7.7) 10^3/u L Lymph # (Auto) (0.8-4.8) 10^3/u L [place] # (Auto) (0.2-0.9) 10^3/u L Eos # (Auto) (0.0-0.8) 10^3/u L Baso # (Auto) (0.0-0.1) 10^3/u L Nucleated RBC % (a uto) % Nucleated RBCs # /100WBC Fibrinogen (174-498) mg/dL D-Dimer (0-0.59) ug/mIFE U Specimen Type Sample Site ABG pH (7.35-7.45) ABG pCO2 (35-45) mmHg ABG pO2 (80.0-100.0) mmH g ABG HCO3 (22-26) mmol/L ABG O2 Saturation ABG Base Excess (-2.0-2.0) mmol/ L Desmond Test A-a O2 Gradient (5-10) mmHg Hematocrit (42-52) % Hgb O2 Saturation (95-100) % Carboxyhemoglobin (0.4-20.1) %THgb Methemoglobin (0.4-1.5) % Total Hemoglobin (14-18) g/dL Ionized Calcium (1.1-1.4) mmol/L O2 Delivery Device O2 Liters/Min % Transcription Manager ID Sodium 176 H* (136-145) mmol/L Potassium 4.0 (3.5-5.1) mmol/L Chloride > 145 H (98-107) mmol/L Carbon Dioxide 17 L (22-29) mmol/L Anion Gap 18.0 (5-19) BUN 61 H (8-23) mg/dL Creatinine 2.3 H (0.7-1.2) mg/dL GFR Calculation 29.0 L (90-130) mL/min Glucose 231 H (65-115) mg/dL POC Glucose 362 H 270 H (70-110) mg/dL Calculated Osmolal ity 387 H (285-295) mOsm/k g Lactic Acid (0.5-2.2) mmol/L Lactic Acid (Sepsi s) (0.5-2.2) mmol/L Lactate (0.5-2.2) mmol/L Calcium 7.3 L (8.5-10.5) mg/dL Total Bilirubin (0.15-1.2) mg/dL AST (0-40) U/L ALT (0-41) U/L Alkaline Phosphata se (40-130) IU/L Creatine Kinase (39-308) U/L C-Reactive Protein (0.0-4.9) mg/L NT-Pro-B Natriuret Pep (0-125) pg/mL Total Protein (6.6-8.7) g/dL Albumin (3.5-5.2) g/dL Globulin (1.3-4.6) g/dL Procalcitonin (0-0.5) ng/mL Urine Color (Yellow) Urine Appearance (CLEAR) Urine pH (5-7) Ur Specific Gravit y (1.005-1.030) Urine Protein (Negative) Urine Glucose (UA) (Normal) Urine Ketones (Negative) Urine Blood (Negative) Urine Nitrate (Negative) Urine Bilirubin (Negative) Urine Urobilinogen (Negative) mg/dL Ur Leukocyte Lucie ase (Negative) Urine RBC (0-2) /hpf Urine WBC (0-5) /hpf Ur Squamous Epith Cells (0-5) /hpf Amorphous Sediment Urine Bacteria (NONE) /hpf Serum Ketones (Negative) SARS-CoV-2 Ag (Rap id) (Negative) Imaging Data^: Other Imaging: Radiologist's impression: [address] [id number] Scan ReportSigned Patient: Milagros Duval #: [id number]: [id number]#:[id number]/Sex: 60 / MADM Date: 10/06/20Loc: ERRoom/Bed:Attending Dr: Ordering Provider/Ordering MD: Avni Hutton MD, [facility] [place] of Service: 10/06/20 Procedure(s): CT head wo con* [id number] Accession Number(s): [id number] Report Number: [id number] WS: [id number] CT scan of the head, 10/06/2020 Clinical Data: AMS Comparison: None. DLP: 1001.[address] scans at [facility] use at least one of these dose optimization techniques: automated exposure control; mA and/or kV adjustment per patient size (includes targeted exams where dose is matched to clinical indication); or iterative reconstruction. Findings: The ventricular system is minimally enlarged without shift. No recent infarct or hemorrhage is seen. There are no abnormal intracerebral masses. The cerebellum and brainstem are not remarkable. Bony windows of the skull and skull base show no fractures or erosions. The mastoid air cells, internal auditory canals, sella turcica, intraorbital contents, and paranasal sinuses are unremarkable. CT/CT head wo con* [id number] Impression: Minimal cerebral atrophy. Dictated By:Cindi Wylie MDSigned By:Cindi Wylie MDSigned Date/Time:10/06/20 1441DD/ [address], [place] [address]FXhb ReportSigned Patient: Milagros Duval #: [id number]: [id number]#:[id number]/Sex: 60 / MADM Date: 10/06/20Loc: ERR oom/Bed:Attending Dr: Ordering Provider/Ordering MD: Avni Hutton MD, [facility] [place] Date of Service: 10/06/20 Procedure(s): XR chest 1V portable [id number] Accession Number(s): [id number] Report Number: [id number] WS: [id number] Portable AP upright chest, 10/06/2020 Clinical Data: AMS, COVID + Comparison: None. Findings: There is patchy opacity in the periphery of the left lower lung which may represent acute pneumonia. The right lung is clear. The heart is normal. The pulmonary vascularity is not increased. No pneumothorax is seen. XR/XR chest 1V portable [id number] Impression: Patchy opacity in periphery of left lower lobe which may represent acute pneumonia. Dictated By:Cindi Wylie MDSigned By:Cindi Wylie MDSigned Date/Time:10/06/20 1305DD/ 1304 Critical Care Time Critical Care Time: Attestation: Given the high probability of imminent or life threatening deterioration of the patient?s condition without intervention, the patient was immediately assessed by myself and the nurse, and cardiac monitoring initiated. The patient was also placed on oxygen and continuous pulse oximetry initiated. During the course of the patient?s stay, I spent a considerable amount of time at the bedside performing serial re-evaluations of the patient?s hemodynamic and clinical status because of the recognized potential threat to life or limb in this condition. Clinical management of this patient involved high complexity decision making to assess, manipulate, and support vital organ system failure. I then had a chance to review all of the available laboratory and radiographic studies obtained today, and I also reviewed old records available to me at the time. Sequential vital signs were obtained. Critical care time noted below was time spent engaged in work directly related to the individual patient?s care, not including time performing procedures; however it does include time spent at the immediate bedside or elsewhere on the floor or unit. TOTAL CRITICAL CARE TIME ELAPSED: in 32 minutes. BODY SYSTEM AT HIGHEST RISK: Pulmonary. Discharge Plan Discharge Patient Disposition: Admitted As Inpatient Admit Provider: Tomer Murray Clinical Impression: Acidosis, lactic, Acute hypoxemic respiratory failure, HHS (hypothenar hammer syndrome), Acute hypernatremia, MOF (multiple organ failure) Condition: Stable Sign Out Sign Out Data: Patient Sign Out occurred on 10/07/20 at 00:40. Patient's care was discussed, and care was transferred from to Jorge Gar MD. Patient Sign Out occurred on 10/07/20 at 08:33. Patient's care was discussed, and care was transferred from to Mateus Mata MD. Coding Level of Care Code ED [facility] for Chg Fwd Exam Comprehensive Documented by User: Mateus Mata MD 10/07/20 08:54 HPI - SOB/Dyspnea General: Chief Complaint: General Medical Stated Complaint: COVID +/ RESPIRATORY DISTRESS Time Seen by Provider: 10/06/20 12:47 PFSH ED PFSH: Social History Smoking and tobacco status: never smoked Alcohol intake: never Procedures Arterial Line Time Out Performed: Yes Size (Gauge): 20 Technique Used: guide wire technique Post-Procedure: line sutured into place and dry sterile dressing placed Patient Tolerated Procedure: well Complications: none Site: left and radial Course Vital Signs: Vital signs: Vital Signs Temperature 106.5 F H 10/08/20 02:00 Pulse Rate 0 L 10/08/20 02:30 Respiratory Rate 23 H 10/08/20 00:00 Blood Pressure 72/41 10/08/20 02:00 Pulse Oximetry 85 L 10/08/20 02:00 MDM - SOB/Dyspnea Lab Data: Labs: Lab Results 10/06/20 10/06/20 10/06/20 Range/Units 12:20 12:20 12:20 WBC 25.1 H (4.0-10.0) 10^3/ uL RBC 6.78 H (4.1-5.3) 10^6/u L Hgb 19.5 H (11.7-16.6) g/dL Hct 68.5 H* (42.0-52.0) % MCV 101.0 H (80-94) fL MCH 28.8 (28.0-34.0) pg MCHC 28.5 L (30.0-36.0) g/dL RDW 13.8 (12.1-15.1) % Plt Count 415 H (130-400) 10^3/c mm MPV 12.3 H (7.4-10.4) fL Neut % (Auto) 85.1 % Lymph % (Auto) 6.3 % [place] % (Auto) 6.3 % Eos % (Auto) 0.0 % Baso % (Auto) 0.4 % Neut # (Auto) 21.34 H (1.8-7.7) 10^3/u L Lymph # (Auto) 1.6 (0.8-4.8) 10^3/u L [place] # (Auto) 1.6 H (0.2-0.9) 10^3/u L Eos # (Auto) 0.0 (0.0-0.8) 10^3/u L Baso # (Auto) 0.1 (0.0-0.1) 10^3/u L Nucleated RBC % (a uto) 0 % Nucleated RBCs # 0.0 /100WBC Fibrinogen (174-498) mg/dL D-Dimer (0-0.59) ug/mIFE U Specimen Type Sample Site ABG pH (7.35-7.45) ABG pCO2 (35-45) mmHg ABG pO2 (80.0-100.0) mmH g ABG HCO3 (22-26) mmol/L ABG O2 Saturation ABG Base Excess (-2.0-2.0) mmol/ L Desmond Test A-a O2 Gradient (5-10) mmHg Hematocrit (42-52) % Hgb O2 Saturation (95-100) % Carboxyhemoglobin (0.4-20.1) %THgb Methemoglobin (0.4-1.5) % Total Hemoglobin (14-18) g/dL Ionized Calcium (1.1-1.4) mmol/L O2 Delivery Device O2 Liters/Min % Transcription Manager ID Sodium 164 H* (136-145) mmol/L Potassium 4.2 (3.5-5.1) mmol/L Chloride 116 H (98-107) mmol/L Carbon Dioxide 17 L (22-29) mmol/L Anion Gap 35.2 H (5-19) BUN 66 H (8-23) mg/dL Creatinine 2.2 H (0.7-1.2) mg/dL GFR Calculation 30.5 L (90-130) mL/min Glucose 1232 H* (65-115) mg/dL POC Glucose (70-110) mg/dL Calculated Osmolal ity 420 H (285-295) mOsm/k g Lactic Acid (0.5-2.2) mmol/L Lactic Acid (Sepsi s) (0.5-2.2) mmol/L Lactate (0.5-2.2) mmol/L Calcium 11.2 H (8.5-10.5) mg/dL Total Bilirubin 0.4 (0.15-1.2) mg/dL AST 24 (0-40) U/L ALT 29 (0-41) U/L Alkaline Phosphata se 172 H (40-130) IU/L Creatine Kinase 375 H* (39-308) U/L C-Reactive Protein 88.8 H (0.0-4.9) mg/L NT-Pro-B Natriuret Pep 364 H (0-125) pg/mL Total Protein 8.6 (6.6-8.7) g/dL Albumin 4.2 (3.5-5.2) g/dL Globulin 4.4 (1.3-4.6) g/dL Procalcitonin 0.45 (0-0.5) ng/mL Urine Color (Yellow) Urine Appearance (CLEAR) Urine pH (5-7) Ur Specific Gravit y (1.005-1.030) Urine Protein (Negative) Urine Glucose (UA) (Normal) Urine Ketones (Negative) Urine Blood (Negative) Urine Nitrate (Negative) Urine Bilirubin (Negative) Urine Urobilinogen (Negative) mg/dL Ur Leukocyte Lucie ase (Negative) Urine RBC (0-2) /hpf Urine WBC (0-5) /hpf Ur Squamous Epith Cells (0-5) /hpf Amorphous Sediment Urine Bacteria (NONE) /hpf Serum Ketones Negative (Negative) SARS-CoV-2 Ag (Rap id) (Negative) 10/06/20 10/06/20 10/06/20 Range/Units 12:40 13:35 13:35 WBC (4.0-10.0) 10^3/ uL RBC (4.1-5.3) 10^6/u L Hgb (11.7-16.6) g/dL Hct (42.0-52.0) % MCV (80-94) fL MCH (28.0-34.0) pg MCHC (30.0-36.0) g/dL RDW (12.1-15.1) % Plt Count (130-400) 10^3/c mm MPV (7.4-10.4) fL Neut % (Auto) % Lymph % (Auto) % [place] % (Auto) % Eos % (Auto) % Baso % (Auto) % Neut # (Auto) (1.8-7.7) 10^3/u L Lymph # (Auto) (0.8-4.8) 10^3/u L [place] # (Auto) (0.2-0.9) 10^3/u L Eos # (Auto) (0.0-0.8) 10^3/u L Baso # (Auto) (0.0-0.1) 10^3/u L Nucleated RBC % (a uto) % Nucleated RBCs # /100WBC Fibrinogen (174-498) mg/dL D-Dimer (0-0.59) ug/mIFE U Specimen Type Arterial Sample Site Brachial, left ABG pH 7.26 L (7.35-7.45) ABG pCO2 33.5 L (35-45) mmHg ABG pO2 166.0 H (80.0-100.0) mmH g ABG HCO3 14.9 L (22-26) mmol/L ABG O2 Saturation ABG Base Excess -11.0 L (-2.0-2.0) mmol/ L Desmond Test Pos A-a O2 Gradient (5-10) mmHg Hematocrit 55.2 H (42-52) % Hgb O2 Saturation (95-100) % Carboxyhemoglobin (0.4-20.1) %THgb Methemoglobin (0.4-1.5) % Total Hemoglobin (14-18) g/dL Ionized Calcium (1.1-1.4) mmol/L O2 Delivery Device Nrb O2 Liters/Min 15.0 % Transcription Manager ID Duner Sodium (136-145) mmol/L Potassium (3.5-5.1) mmol/L Chloride (98-107) mmol/L Carbon Dioxide (22-29) mmol/L Anion Gap (5-19) BUN (8-23) mg/dL Creatinine (0.7-1.2) mg/dL GFR Calculation (90-130) mL/min Glucose (65-115) mg/dL POC Glucose (70-110) mg/dL Calculated Osmolal ity (285-295) mOsm/k g Lactic Acid 5.4 H* (0.5-2.2) mmol/L Lactic Acid (Sepsi s) (0.5-2.2) mmol/L Lactate (0.5-2.2) mmol/L Calcium (8.5-10.5) mg/dL Total Bilirubin (0.15-1.2) mg/dL AST (0-40) U/L ALT (0-41) U/L Alkaline Phosphata se (40-130) IU/L Creatine Kinase (39-308) U/L C-Reactive Protein (0.0-4.9) mg/L NT-Pro-B Natriuret Pep (0-125) pg/mL Total Protein (6.6-8.7) g/dL Albumin (3.5-5.2) g/dL Globulin (1.3-4.6) g/dL Procalcitonin (0-0.5) ng/mL Urine Color Yellow (Yellow) Urine Appearance Clear (CLEAR) Urine pH 5 (5-7) Ur Specific Gravit y 1.005 (1.005-1.030) Urine Protein Neg (Negative) Urine Glucose (UA) 4+ H (Normal) Urine Ketones Negative (Negative) Urine Blood 2+ H (Negative) Urine Nitrate Negative (Negative) Urine Bilirubin Neg (Negative) Urine Urobilinogen Norm (Negative) mg/dL Ur Leukocyte Lucie ase Negative (Negative) Urine RBC 0-4 H (0-2) /hpf Urine WBC None (0-5) /hpf Ur Squamous Epith Cells 0-4 H (0-5) /hpf Amorphous Sediment Not Reportable Urine Bacteria 1+ H (NONE) /hpf Serum Ketones (Negative) SARS-CoV-2 Ag (Rap id) (Negative) 10/06/20 10/06/20 10/06/20 Range/Units 15:04 15:04 16:27 WBC (4.0-10.0) 10^3/ uL RBC (4.1-5.3) 10^6/u L Hgb (11.7-16.6) g/dL Hct (42.0-52.0) % MCV (80-94) fL MCH (28.0-34.0) pg MCHC (30.0-36.0) g/dL RDW (12.1-15.1) % Plt Count (130-400) 10^3/c mm MPV (7.4-10.4) fL Neut % (Auto) % Lymph % (Auto) % [place] % (Auto) % Eos % (Auto) % Baso % (Auto) % Neut # (Auto) (1.8-7.7) 10^3/u L Lymph # (Auto) (0.8-4.8) 10^3/u L [place] # (Auto) (0.2-0.9) 10^3/u L Eos # (Auto) (0.0-0.8) 10^3/u L Baso # (Auto) (0.0-0.1) 10^3/u L Nucleated RBC % (a uto) % Nucleated RBCs # /100WBC Fibrinogen 438 (174-498) mg/dL D-Dimer >= 20.00 H (0-0.59) ug/mIFE U Specimen Type Sample Site ABG pH (7.35-7.45) ABG pCO2 (35-45) mmHg ABG pO2 (80.0-100.0) mmH g ABG HCO3 (22-26) mmol/L ABG O2 Saturation ABG Base Excess (-2.0-2.0) mmol/ L Desmond Test A-a O2 Gradient (5-10) mmHg Hematocrit (42-52) % Hgb O2 Saturation (95-100) % Carboxyhemoglobin (0.4-20.1) %THgb Methemoglobin (0.4-1.5) % Total Hemoglobin (14-18) g/dL Ionized Calcium (1.1-1.4) mmol/L O2 Delivery Device O2 Liters/Min % Transcription Manager ID Sodium (136-145) mmol/L Potassium (3.5-5.1) mmol/L Chloride (98-107) mmol/L Carbon Dioxide (22-29) mmol/L Anion Gap (5-19) BUN (8-23) mg/dL Creatinine (0.7-1.2) mg/dL GFR Calculation (90-130) mL/min Glucose (65-115) mg/dL POC Glucose > 600 H* (70-110) mg/dL Calculated Osmolal ity (285-295) mOsm/k g Lactic Acid (0.5-2.2) mmol/L Lactic Acid (Sepsi s) 4.8 H* (0.5-2.2) mmol/L Lactate (0.5-2.2) mmol/L Calcium (8.5-10.5) mg/dL Total Bilirubin (0.15-1.2) mg/dL AST (0-40) U/L ALT (0-41) U/L Alkaline Phosphata se (40-130) IU/L Creatine Kinase (39-308) U/L C-Reactive Protein (0.0-4.9) mg/L NT-Pro-B Natriuret Pep (0-125) pg/mL Total Protein (6.6-8.7) g/dL Albumin (3.5-5.2) g/dL Globulin (1.3-4.6) g/dL Procalcitonin (0-0.5) ng/mL Urine Color (Yellow) Urine Appearance (CLEAR) Urine pH (5-7) Ur Specific Gravit y (1.005-1.030) Urine Protein (Negative) Urine Glucose (UA) (Normal) Urine Ketones (Negative) Urine Blood (Negative) Urine Nitrate (Negative) Urine Bilirubin (Negative) Urine Urobilinogen (Negative) mg/dL Ur Leukocyte Lucie ase (Negative) Urine RBC (0-2) /hpf Urine WBC (0-5) /hpf Ur Squamous Epith Cells (0-5) /hpf Amorphous Sediment Urine Bacteria (NONE) /hpf Serum Ketones (Negative) SARS-CoV-2 Ag (Rap id) (Negative) 10/06/20 10/06/20 10/06/20 Range/Units 17:34 17:35 18:31 WBC (4.0-10.0) 10^3/ uL RBC (4.1-5.3) 10^6/u L Hgb (11.7-16.6) g/dL Hct (42.0-52.0) % MCV (80-94) fL MCH (28.0-34.0) pg MCHC (30.0-36.0) g/dL RDW (12.1-15.1) % Plt Count (130-400) 10^3/c mm MPV (7.4-10.4) fL Neut % (Auto) % Lymph % (Auto) % [place] % (Auto) % Eos % (Auto) % Baso % (Auto) % Neut # (Auto) (1.8-7.7) 10^3/u L Lymph # (Auto) (0.8-4.8) 10^3/u L [place] # (Auto) (0.2-0.9) 10^3/u L Eos # (Auto) (0.0-0.8) 10^3/u L Baso # (Auto) (0.0-0.1) 10^3/u L Nucleated RBC % (a uto) % Nucleated RBCs # /100WBC Fibrinogen (174-498) mg/dL D-Dimer (0-0.59) ug/mIFE U Specimen Type Sample Site ABG pH (7.35-7.45) ABG pCO2 (35-45) mmHg ABG pO2 (80.0-100.0) mmH g ABG HCO3 (22-26) mmol/L ABG O2 Saturation ABG Base Excess (-2.0-2.0) mmol/ L Desmond Test A-a O2 Gradient (5-10) mmHg Hematocrit (42-52) % Hgb O2 Saturation (95-100) % Carboxyhemoglobin (0.4-20.1) %THgb Methemoglobin (0.4-1.5) % Total Hemoglobin (14-18) g/dL Ionized Calcium (1.1-1.4) mmol/L O2 Delivery Device O2 Liters/Min % Transcription Manager ID Sodium (136-145) mmol/L Potassium (3.5-5.1) mmol/L Chloride (98-107) mmol/L Carbon Dioxide (22-29) mmol/L Anion Gap (5-19) BUN (8-23) mg/dL Creatinine (0.7-1.2) mg/dL GFR Calculation (90-130) mL/min Glucose (65-115) mg/dL POC Glucose > 600 H* > 600 H* (70-110) mg/dL Calculated Osmolal ity (285-295) mOsm/k g Lactic Acid (0.5-2.2) mmol/L Lactic Acid (Sepsi s) (0.5-2.2) mmol/L Lactate (0.5-2.2) mmol/L Calcium (8.5-10.5) mg/dL Total Bilirubin (0.15-1.2) mg/dL AST (0-40) U/L ALT (0-41) U/L Alkaline Phosphata se (40-130) IU/L Creatine Kinase (39-308) U/L C-Reactive Protein (0.0-4.9) mg/L NT-Pro-B Natriuret Pep (0-125) pg/mL Total Protein (6.6-8.7) g/dL Albumin (3.5-5.2) g/dL Globulin (1.3-4.6) g/dL Procalcitonin (0-0.5) ng/mL Urine Color (Yellow) Urine Appearance (CLEAR) Urine pH (5-7) Ur Specific Gravit y (1.005-1.030) Urine Protein (Negative) Urine Glucose (UA) (Normal) Urine Ketones (Negative) Urine Blood (Negative) Urine Nitrate (Negative) Urine Bilirubin (Negative) Urine Urobilinogen (Negative) mg/dL Ur Leukocyte Lucie ase (Negative) Urine RBC (0-2) /hpf Urine WBC (0-5) /hpf Ur Squamous Epith Cells (0-5) /hpf Amorphous Sediment Urine Bacteria (NONE) /hpf Serum Ketones (Negative) SARS-CoV-2 Ag (Rap id) Negative (Negative) 08/12/21 08/12/21 08/12/21 Range/Units 18:43 18:43 20:05 WBC (4.0-10.0) 10^3/ uL RBC (4.1-5.3) 10^6/u L Hgb (11.7-16.6) g/dL Hct (42.0-52.0) % MCV (80-94) fL MCH (28.0-34.0) pg MCHC (30.0-36.0) g/dL RDW (12.1-15.1) % Plt Count (130-400) 10^3/c mm MPV (7.4-10.4) fL Neut % (Auto) % Lymph % (Auto) % [place] % (Auto) % Eos % (Auto) % Baso % (Auto) % Neut # (Auto) (1.8-7.7) 10^3/u L Lymph # (Auto) (0.8-4.8) 10^3/u L [place] # (Auto) (0.2-0.9) 10^3/u L Eos # (Auto) (0.0-0.8) 10^3/u L Baso # (Auto) (0.0-0.1) 10^3/u L Nucleated RBC % (a uto) % Nucleated RBCs # /100WBC Fibrinogen (174-498) mg/dL D-Dimer (0-0.59) ug/mIFE U Specimen Type Sample Site ABG pH (7.35-7.45) ABG pCO2 (35-45) mmHg ABG pO2 (80.0-100.0) mmH g ABG HCO3 (22-26) mmol/L ABG O2 Saturation ABG Base Excess (-2.0-2.0) mmol/ L Desmond Test A-a O2 Gradient (5-10) mmHg Hematocrit (42-52) % Hgb O2 Saturation (95-100) % Carboxyhemoglobin (0.4-20.1) %THgb Methemoglobin (0.4-1.5) % Total Hemoglobin (14-18) g/dL Ionized Calcium (1.1-1.4) mmol/L O2 Delivery Device O2 Liters/Min % Transcription Manager ID Sodium 169 H* (136-145) mmol/L Potassium 2.5 L* D (3.5-5.1) mmol/L Chloride 133 H (98-107) mmol/L Carbon Dioxide 17 L (22-29) mmol/L Anion Gap 21.5 H (5-19) BUN 65 H (8-23) mg/dL Creatinine 2.5 H (0.7-1.2) mg/dL GFR Calculation 26.3 L (90-130) mL/min Glucose 902 H* (65-115) mg/dL POC Glucose > 600 H* (70-110) mg/dL Calculated Osmolal ity 411 H (285-295) mOsm/k g Lactic Acid 4.9 H* (0.5-2.2) mmol/L Lactic Acid (Sepsi s) (0.5-2.2) mmol/L Lactate (0.5-2.2) mmol/L Calcium 9.0 (8.5-10.5) mg/dL Total Bilirubin (0.15-1.2) mg/dL AST (0-40) U/L ALT (0-41) U/L Alkaline Phosphata se (40-130) IU/L Creatine Kinase (39-308) U/L C-Reactive Protein (0.0-4.9) mg/L NT-Pro-B Natriuret Pep (0-125) pg/mL Total Protein (6.6-8.7) g/dL Albumin (3.5-5.2) g/dL Globulin (1.3-4.6) g/dL Procalcitonin (0-0.5) ng/mL Urine Color (Yellow) Urine Appearance (CLEAR) Urine pH (5-7) Ur Specific Gravit y (1.005-1.030) Urine Protein (Negative) Urine Glucose (UA) (Normal) Urine Ketones (Negative) Urine Blood (Negative) Urine Nitrate (Negative) Urine Bilirubin (Negative) Urine Urobilinogen (Negative) mg/dL Ur Leukocyte Lucie ase (Negative) Urine RBC (0-2) /hpf Urine WBC (0-5) /hpf Ur Squamous Epith Cells (0-5) /hpf Amorphous Sediment Urine Bacteria (NONE) /hpf Serum Ketones (Negative) SARS-CoV-2 Ag (Rap id) (Negative) 10/06/20 10/06/20 10/06/20 Range/Units 21:08 21:21 22:15 WBC (4.0-10.0) 10^3/ uL RBC (4.1-5.3) 10^6/u L Hgb (11.7-16.6) g/dL Hct (42.0-52.0) % MCV (80-94) fL MCH (28.0-34.0) pg MCHC (30.0-36.0) g/dL RDW (12.1-15.1) % Plt Count (130-400) 10^3/c mm MPV (7.4-10.4) fL Neut % (Auto) % Lymph % (Auto) % [place] % (Auto) % Eos % (Auto) % Baso % (Auto) % Neut # (Auto) (1.8-7.7) 10^3/u L Lymph # (Auto) (0.8-4.8) 10^3/u L [place] # (Auto) (0.2-0.9) 10^3/u L Eos # (Auto) (0.0-0.8) 10^3/u L Baso # (Auto) (0.0-0.1) 10^3/u L Nucleated RBC % (a uto) % Nucleated RBCs # /100WBC Fibrinogen (174-498) mg/dL D-Dimer (0-0.59) ug/mIFE U Specimen Type Arterial Sample Site Brachial, left ABG pH 7.35 (7.35-7.45) ABG pCO2 33.4 L (35-45) mmHg ABG pO2 103.0 H (80.0-100.0) mmH g ABG HCO3 18.4 L (22-26) mmol/L ABG O2 Saturation ABG Base Excess -6.1 L (-2.0-2.0) mmol/ L Desmond Test N/a A-a O2 Gradient (5-10) mmHg Hematocrit 48.4 (42-52) % Hgb O2 Saturation (95-100) % Carboxyhemoglobin (0.4-20.1) %THgb Methemoglobin (0.4-1.5) % Total Hemoglobin (14-18) g/dL Ionized Calcium (1.1-1.4) mmol/L O2 Delivery Device Nc O2 Liters/Min 10.0 % Transcription Manager ID Harkr Sodium (136-145) mmol/L Potassium (3.5-5.1) mmol/L Chloride (98-107) mmol/L Carbon Dioxide (22-29) mmol/L Anion Gap (5-19) BUN (8-23) mg/dL Creatinine (0.7-1.2) mg/dL GFR Calculation (90-130) mL/min Glucose (65-115) mg/dL POC Glucose > 600 H* (70-110) mg/dL Calculated Osmolal ity (285-295) mOsm/k g Lactic Acid (0.5-2.2) mmol/L Lactic Acid (Sepsi s) 5.2 H* (0.5-2.2) mmol/L Lactate (0.5-2.2) mmol/L Calcium (8.5-10.5) mg/dL Total Bilirubin (0.15-1.2) mg/dL AST (0-40) U/L ALT (0-41) U/L Alkaline Phosphata se (40-130) IU/L Creatine Kinase (39-308) U/L C-Reactive Protein (0.0-4.9) mg/L NT-Pro-B Natriuret Pep (0-125) pg/mL Total Protein (6.6-8.7) g/dL Albumin (3.5-5.2) g/dL Globulin (1.3-4.6) g/dL Procalcitonin (0-0.5) ng/mL Urine Color (Yellow) Urine Appearance (CLEAR) Urine pH (5-7) Ur Specific Gravit y (1.005-1.030) Urine Protein (Negative) Urine Glucose (UA) (Normal) Urine Ketones (Negative) Urine Blood (Negative) Urine Nitrate (Negative) Urine Bilirubin (Negative) Urine Urobilinogen (Negative) mg/dL Ur Leukocyte Lucie ase (Negative) Urine RBC (0-2) /hpf Urine WBC (0-5) /hpf Ur Squamous Epith Cells (0-5) /hpf Amorphous Sediment Urine Bacteria (NONE) /hpf Serum Ketones (Negative) SARS-CoV-2 Ag (Rap id) (Negative) 10/06/20 10/07/20 10/07/20 Range/Units 22:50 00:10 01:56 WBC (4.0-10.0) 10^3/ uL RBC (4.1-5.3) 10^6/u L Hgb (11.7-16.6) g/dL Hct (42.0-52.0) % MCV (80-94) fL MCH (28.0-34.0) pg MCHC (30.0-36.0) g/dL RDW (12.1-15.1) % Plt Count (130-400) 10^3/c mm MPV (7.4-10.4) fL Neut % (Auto) % Lymph % (Auto) % [place] % (Auto) % Eos % (Auto) % Baso % (Auto) % Neut # (Auto) (1.8-7.7) 10^3/u L Lymph # (Auto) (0.8-4.8) 10^3/u L [place] # (Auto) (0.2-0.9) 10^3/u L Eos # (Auto) (0.0-0.8) 10^3/u L Baso # (Auto) (0.0-0.1) 10^3/u L Nucleated RBC % (a uto) % Nucleated RBCs # /100WBC Fibrinogen (174-498) mg/dL D-Dimer (0-0.59) ug/mIFE U Specimen Type Sample Site ABG pH (7.35-7.45) ABG pCO2 (35-45) mmHg ABG pO2 (80.0-100.0) mmH g ABG HCO3 (22-26) mmol/L ABG O2 Saturation ABG Base Excess (-2.0-2.0) mmol/ L Desmond Test A-a O2 Gradient (5-10) mmHg Hematocrit (42-52) % Hgb O2 Saturation (95-100) % Carboxyhemoglobin (0.4-20.1) %THgb Methemoglobin (0.4-1.5) % Total Hemoglobin (14-18) g/dL Ionized Calcium (1.1-1.4) mmol/L O2 Delivery Device O2 Liters/Min % Transcription Manager ID Sodium (136-145) mmol/L Potassium (3.5-5.1) mmol/L Chloride (98-107) mmol/L Carbon Dioxide (22-29) mmol/L Anion Gap (5-19) BUN (8-23) mg/dL Creatinine (0.7-1.2) mg/dL GFR Calculation (90-130) mL/min Glucose (65-115) mg/dL POC Glucose > 600 H* > 600 H* 356 H (70-110) mg/dL Calculated Osmolal ity (285-295) mOsm/k g Lactic Acid (0.5-2.2) mmol/L Lactic Acid (Sepsi s) (0.5-2.2) mmol/L Lactate (0.5-2.2) mmol/L Calcium (8.5-10.5) mg/dL Total Bilirubin (0.15-1.2) mg/dL AST (0-40) U/L ALT (0-41) U/L Alkaline Phosphata se (40-130) IU/L Creatine Kinase (39-308) U/L C-Reactive Protein (0.0-4.9) mg/L NT-Pro-B Natriuret Pep (0-125) pg/mL Total Protein (6.6-8.7) g/dL Albumin (3.5-5.2) g/dL Globulin (1.3-4.6) g/dL Procalcitonin (0-0.5) ng/mL Urine Color (Yellow) Urine Appearance (CLEAR) Urine pH (5-7) Ur Specific Gravit y (1.005-1.030) Urine Protein (Negative) Urine Glucose (UA) (Normal) Urine Ketones (Negative) Urine Blood (Negative) Urine Nitrate (Negative) Urine Bilirubin (Negative) Urine Urobilinogen (Negative) mg/dL Ur Leukocyte Lucie ase (Negative) Urine RBC (0-2) /hpf Urine WBC (0-5) /hpf Ur Squamous Epith Cells (0-5) /hpf Amorphous Sediment Urine Bacteria (NONE) /hpf Serum Ketones (Negative) SARS-CoV-2 Ag (Rap id) (Negative) 10/07/20 10/07/20 10/07/20 Range/Units 02:46 03:19 05:00 WBC 24.0 H (4.0-10.0) 10^3/ uL RBC 5.70 H (4.1-5.3) 10^6/u L Hgb 16.5 (11.7-16.6) g/dL Hct 52.9 H (42.0-52.0) % MCV 92.8 D (80-94) fL MCH 28.9 (28.0-34.0) pg MCHC 31.2 D (30.0-36.0) g/dL RDW 13.7 (12.1-15.1) % Plt Count 250 (130-400) 10^3/c mm MPV 11.3 H (7.4-10.4) fL Neut % (Auto) 83.1 % Lymph % (Auto) 6.2 % [place] % (Auto) 9.3 % Eos % (Auto) 0.0 % Baso % (Auto) 0.3 % Neut # (Auto) 19.93 H (1.8-7.7) 10^3/u L Lymph # (Auto) 1.5 (0.8-4.8) 10^3/u L [place] # (Auto) 2.2 H (0.2-0.9) 10^3/u L Eos # (Auto) 0.0 (0.0-0.8) 10^3/u L Baso # (Auto) 0.1 (0.0-0.1) 10^3/u L Nucleated RBC % (a uto) 0 % Nucleated RBCs # 0.0 /100WBC Fibrinogen (174-498) mg/dL D-Dimer (0-0.59) ug/mIFE U Specimen Type Sample Site ABG pH (7.35-7.45) ABG pCO2 (35-45) mmHg ABG pO2 (80.0-100.0) mmH g ABG HCO3 (22-26) mmol/L ABG O2 Saturation ABG Base Excess (-2.0-2.0) mmol/ L Desmond Test A-a O2 Gradient (5-10) mmHg Hematocrit (42-52) % Hgb O2 Saturation (95-100) % Carboxyhemoglobin (0.4-20.1) %THgb Methemoglobin (0.4-1.5) % Total Hemoglobin (14-18) g/dL Ionized Calcium (1.1-1.4) mmol/L O2 Delivery Device O2 Liters/Min % Transcription Manager ID Sodium (136-145) mmol/L Potassium (3.5-5.1) mmol/L Chloride (98-107) mmol/L Carbon Dioxide (22-29) mmol/L Anion Gap (5-19) BUN (8-23) mg/dL Creatinine (0.7-1.2) mg/dL GFR Calculation (90-130) mL/min Glucose (65-115) mg/dL POC Glucose 208 H 196 H (70-110) mg/dL Calculated Osmolal ity (285-295) mOsm/k g Lactic Acid (0.5-2.2) mmol/L Lactic Acid (Sepsi s) (0.5-2.2) mmol/L Lactate (0.5-2.2) mmol/L Calcium (8.5-10.5) mg/dL Total Bilirubin (0.15-1.2) mg/dL AST (0-40) U/L ALT (0-41) U/L Alkaline Phosphata se (40-130) IU/L Creatine Kinase (39-308) U/L C-Reactive Protein (0.0-4.9) mg/L NT-Pro-B Natriuret Pep (0-125) pg/mL Total Protein (6.6-8.7) g/dL Albumin (3.5-5.2) g/dL Globulin (1.3-4.6) g/dL Procalcitonin (0-0.5) ng/mL Urine Color (Yellow) Urine Appearance (CLEAR) Urine pH (5-7) Ur Specific Gravit y (1.005-1.030) Urine Protein (Negative) Urine Glucose (UA) (Normal) Urine Ketones (Negative) Urine Blood (Negative) Urine Nitrate (Negative) Urine Bilirubin (Negative) Urine Urobilinogen (Negative) mg/dL Ur Leukocyte Lucie ase (Negative) Urine RBC (0-2) /hpf Urine WBC (0-5) /hpf Ur Squamous Epith Cells (0-5) /hpf Amorphous Sediment Urine Bacteria (NONE) /hpf Serum Ketones (Negative) SARS-CoV-2 Ag (Rap id) (Negative) 10/07/20 10/07/20 10/07/20 Range/Units 05:00 05:00 05:08 WBC (4.0-10.0) 10^3/ uL RBC (4.1-5.3) 10^6/u L Hgb (11.7-16.6) g/dL Hct (42.0-52.0) % MCV (80-94) fL MCH (28.0-34.0) pg MCHC (30.0-36.0) g/dL RDW (12.1-15.1) % Plt Count (130-400) 10^3/c mm MPV (7.4-10.4) fL Neut % (Auto) % Lymph % (Auto) % [place] % (Auto) % Eos % (Auto) % Baso % (Auto) % Neut # (Auto) (1.8-7.7) 10^3/u L Lymph # (Auto) (0.8-4.8) 10^3/u L [place] # (Auto) (0.2-0.9) 10^3/u L Eos # (Auto) (0.0-0.8) 10^3/u L Baso # (Auto) (0.0-0.1) 10^3/u L Nucleated RBC % (a uto) % Nucleated RBCs # /100WBC Fibrinogen (174-498) mg/dL D-Dimer (0-0.59) ug/mIFE U Specimen Type Sample Site ABG pH (7.35-7.45) ABG pCO2 (35-45) mmHg ABG pO2 (80.0-100.0) mmH g ABG HCO3 (22-26) mmol/L ABG O2 Saturation ABG Base Excess (-2.0-2.0) mmol/ L Desmond Test A-a O2 Gradient (5-10) mmHg Hematocrit (42-52) % Hgb O2 Saturation (95-100) % Carboxyhemoglobin (0.4-20.1) %THgb Methemoglobin (0.4-1.5) % Total Hemoglobin (14-18) g/dL Ionized Calcium (1.1-1.4) mmol/L O2 Delivery Device O2 Liters/Min % Transcription Manager ID Sodium > 181 H* (136-145) mmol/L Potassium 4.4 (3.5-5.1) mmol/L Chloride > 143 H (98-107) mmol/L Carbon Dioxide 22 (22-29) mmol/L Anion Gap 20.4 H (5-19) BUN 60 H (8-23) mg/dL Creatinine 2.1 H (0.7-1.2) mg/dL GFR Calculation 32.2 L (90-130) mL/min Glucose 223 H (65-115) mg/dL POC Glucose 528 H* (70-110) mg/dL Calculated Osmolal ity 396 H (285-295) mOsm/k g Lactic Acid (0.5-2.2) mmol/L Lactic Acid (Sepsi s) (0.5-2.2) mmol/L Lactate 3.2 H (0.5-2.2) mmol/L Calcium 8.6 (8.5-10.5) mg/dL Total Bilirubin (0.15-1.2) mg/dL AST (0-40) U/L ALT (0-41) U/L Alkaline Phosphata se (40-130) IU/L Creatine Kinase (39-308) U/L C-Reactive Protein (0.0-4.9) mg/L NT-Pro-B Natriuret Pep (0-125) pg/mL Total Protein (6.6-8.7) g/dL Albumin (3.5-5.2) g/dL Globulin (1.3-4.6) g/dL Procalcitonin (0-0.5) ng/mL Urine Color (Yellow) Urine Appearance (CLEAR) Urine pH (5-7) Ur Specific Gravit y (1.005-1.030) Urine Protein (Negative) Urine Glucose (UA) (Normal) Urine Ketones (Negative) Urine Blood (Negative) Urine Nitrate (Negative) Urine Bilirubin (Negative) Urine Urobilinogen (Negative) mg/dL Ur Leukocyte Lucie ase (Negative) Urine RBC (0-2) /hpf Urine WBC (0-5) /hpf Ur Squamous Epith Cells (0-5) /hpf Amorphous Sediment Urine Bacteria (NONE) /hpf Serum Ketones (Negative) SARS-CoV-2 Ag (Rap id) (Negative) 10/07/20 10/07/20 10/07/20 Range/Units 05:34 05:46 06:51 WBC (4.0-10.0) 10^3/ uL RBC (4.1-5.3) 10^6/u L Hgb (11.7-16.6) g/dL Hct (42.0-52.0) % MCV (80-94) fL MCH (28.0-34.0) pg MCHC (30.0-36.0) g/dL RDW (12.1-15.1) % Plt Count (130-400) 10^3/c mm MPV (7.4-10.4) fL Neut % (Auto) % Lymph % (Auto) % [place] % (Auto) % Eos % (Auto) % Baso % (Auto) % Neut # (Auto) (1.8-7.7) 10^3/u L Lymph # (Auto) (0.8-4.8) 10^3/u L [place] # (Auto) (0.2-0.9) 10^3/u L Eos # (Auto) (0.0-0.8) 10^3/u L Baso # (Auto) (0.0-0.1) 10^3/u L Nucleated RBC % (a uto) % Nucleated RBCs # /100WBC Fibrinogen (174-498) mg/dL D-Dimer (0-0.59) ug/mIFE U Specimen Type Arterial Sample Site Brachial, left ABG pH 7.34 L (7.35-7.45) ABG pCO2 40.3 (35-45) mmHg ABG pO2 51.7 L (80.0-100.0) mmH g ABG HCO3 21.6 L (22-26) mmol/L ABG O2 Saturation 87.6 ABG Base Excess -4.0 L (-2.0-2.0) mmol/ L Desmond Test N/a A-a O2 Gradient 6.4 (5-10) mmHg Hematocrit 52.9 H (42-52) % Hgb O2 Saturation 86.4 L (95-100) % Carboxyhemoglobin 0.7 (0.4-20.1) %THgb Methemoglobin 0.7 (0.4-1.5) % Total Hemoglobin 17.3 (14-18) g/dL Ionized Calcium 1.2 (1.1-1.4) mmol/L O2 Delivery Device Nrb O2 Liters/Min 15.0 % Transcription Manager ID Harkr Sodium > 182.0 H (136-145) mmol/L Potassium 3.9 (3.5-5.1) mmol/L Chloride (98-107) mmol/L Carbon Dioxide (22-29) mmol/L Anion Gap (5-19) BUN (8-23) mg/dL Creatinine (0.7-1.2) mg/dL GFR Calculation (90-130) mL/min Glucose 252.0 H (65-115) mg/dL POC Glucose 209 H 217 H (70-110) mg/dL Calculated Osmolal ity (285-295) mOsm/k g Lactic Acid (0.5-2.2) mmol/L Lactic Acid (Sepsi s) (0.5-2.2) mmol/L Lactate (0.5-2.2) mmol/L Calcium (8.5-10.5) mg/dL Total Bilirubin (0.15-1.2) mg/dL AST (0-40) U/L ALT (0-41) U/L Alkaline Phosphata se (40-130) IU/L Creatine Kinase (39-308) U/L C-Reactive Protein (0.0-4.9) mg/L NT-Pro-B Natriuret Pep (0-125) pg/mL Total Protein (6.6-8.7) g/dL Albumin (3.5-5.2) g/dL Globulin (1.3-4.6) g/dL Procalcitonin (0-0.5) ng/mL Urine Color (Yellow) Urine Appearance (CLEAR) Urine pH (5-7) Ur Specific Gravit y (1.005-1.030) Urine Protein (Negative) Urine Glucose (UA) (Normal) Urine Ketones (Negative) Urine Blood (Negative) Urine Nitrate (Negative) Urine Bilirubin (Negative) Urine Urobilinogen (Negative) mg/dL Ur Leukocyte Lucie ase (Negative) Urine RBC (0-2) /hpf Urine WBC (0-5) /hpf Ur Squamous Epith Cells (0-5) /hpf Amorphous Sediment Urine Bacteria (NONE) /hpf Serum Ketones (Negative) SARS-CoV-2 Ag (Rap id) (Negative) 10/07/20 10/07/20 10/07/20 Range/Units 07:18 08:29 09:05 WBC (4.0-10.0) 10^3/ uL RBC (4.1-5.3) 10^6/u L Hgb (11.7-16.6) g/dL Hct (42.0-52.0) % MCV (80-94) fL MCH (28.0-34.0) pg MCHC (30.0-36.0) g/dL RDW (12.1-15.1) % Plt Count (130-400) 10^3/c mm MPV (7.4-10.4) fL Neut % (Auto) % Lymph % (Auto) % [place] % (Auto) % Eos % (Auto) % Baso % (Auto) % Neut # (Auto) (1.8-7.7) 10^3/u L Lymph # (Auto) (0.8-4.8) 10^3/u L [place] # (Auto) (0.2-0.9) 10^3/u L Eos # (Auto) (0.0-0.8) 10^3/u L Baso # (Auto) (0.0-0.1) 10^3/u L Nucleated RBC % (a uto) % Nucleated RBCs # /100WBC Fibrinogen (174-498) mg/dL D-Dimer (0-0.59) ug/mIFE U Specimen Type Sample Site ABG pH (7.35-7.45) ABG pCO2 (35-45) mmHg ABG pO2 (80.0-100.0) mmH g ABG HCO3 (22-26) mmol/L ABG O2 Saturation ABG Base Excess (-2.0-2.0) mmol/ L [place] Test A-a O2 Gradient (5-10) mmHg Hematocrit (42-52) % Hgb O2 Saturation (95-100) % Carboxyhemoglobin (0.4-20.1) %THgb Methemoglobin (0.4-1.5) % Total Hemoglobin (14-18) g/dL Ionized Calcium (1.1-1.4) mmol/L O2 Delivery Device O2 Liters/Min % Transcription Manager ID Sodium 176 H* (136-145) mmol/L Potassium 4.0 (3.5-5.1) mmol/L Chloride > 145 H (98-107) mmol/L Carbon Dioxide 17 L (22-29) mmol/L Anion Gap 18.0 (5-19) BUN 61 H (8-23) mg/dL Creatinine 2.3 H (0.7-1.2) mg/dL GFR Calculation 29.0 L (90-130) mL/min Glucose 231 H (65-115) mg/dL POC Glucose 362 H 270 H (70-110) mg/dL Calculated Osmolal ity 387 H (285-295) mOsm/k g Lactic Acid (0.5-2.2) mmol/L Lactic Acid (Sepsi s) (0.5-2.2) mmol/L Lactate (0.5-2.2) mmol/L Calcium 7.3 L (8.5-10.5) mg/dL Total Bilirubin (0.15-1.2) mg/dL AST (0-40) U/L ALT (0-41) U/L Alkaline Phosphata se (40-130) IU/L Creatine Kinase (39-308) U/L C-Reactive Protein (0.0-4.9) mg/L NT-Pro-B Natriuret Pep (0-125) pg/mL Total Protein (6.6-8.7) g/dL Albumin (3.5-5.2) g/dL Globulin (1.3-4.6) g/dL Procalcitonin (0-0.5) ng/mL Urine Color (Yellow) Urine Appearance (CLEAR) Urine pH (5-7) Ur Specific Gravit y (1.005-1.030) Urine Protein (Negative) Urine Glucose (UA) (Normal) Urine Ketones (Negative) Urine Blood (Negative) Urine Nitrate (Negative) Urine Bilirubin (Negative) Urine Urobilinogen (Negative) mg/dL Ur Leukocyte Lucie ase (Negative) Urine RBC (0-2) /hpf Urine WBC (0-5) /hpf Ur Squamous Epith Cells (0-5) /hpf Amorphous Sediment Urine Bacteria (NONE) /hpf Serum Ketones (Negative) SARS-CoV-2 Ag (Rap id) (Negative) Discharge Plan Discharge Patient Disposition: Admitted As Inpatient Admit Provider: Tomer Murray Clinical Impression: Acidosis, lactic, Acute hypoxemic respiratory failure, HHS (hypothenar hammer syndrome), Acute hypernatremia, MOF (multiple organ failure) Condition: Stable Sign Out Sign Out Data: Patient Sign Out occurred on 10/07/20 at 00:40. Patient's care was discussed, and care was transferred from to Jorge Gar MD. Patient Sign Out occurred on 10/07/20 at 08:33. Patient's care was discussed, and care was transferred from to Mateus Mata MD. Coding Level of Care Code ED [facility] for Chg Fwd Exam Comprehensive
[2020-10-06 13:37] LABS: Basophils # 0.1 10^3/uL (0.0-0.1); Basophils % 0.4 %; Hemoglobin 19.5 g/dL (11.7-16.6); Lymphocytes # 1.6 10^3/uL (0.8-4.8); Lymphocytes % 6.3 %; Mean Corpuscular HGB Conc 28.5 g/dL (30.0-36.0); Mean Corpuscular Hemoglobin 28.8 pg (28.0-34.0); Mean Platelet Volume 12.3 fL (7.4-10.4); Monocytes # 1.6 10^3/uL (0.2-0.9); Monocytes % 6.3 %; Neutrophils # 21.34 10^3/uL (1.8-7.7); Neutrophils % 85.1 %; Nucleated Red Blood Cells % 0 %; Platelet Count 415 10^3/cmm (130-400); Red Blood Count 6.78 10^6/uL (4.1-5.3); Red Cell Distribution Width 13.8 % (12.1-15.1); White Blood Count 25.1 10^3/uL (4.0-10.0)
--- NOTE | 2020-10-06 13:37 | PC.PHAR ---
Addendum entered by Cathy Mclaughlin 10/06/20 13:40: I JUST FOUND OUT THAT PT'S IN IN ICU ON A VENT. THERE IS NO ONE ELSE ON PT'S CONTACT LIST. Original Note: PT IS UNABLE TO CONFIRM MEDICATIONS, OR ANSWER ANY QUESTIONS. I TRIED TO CONTACT PT'S , BUT WAS UNABLE TO REACH HER, AND UNABLE TO LEAVE A MESSAGE. I WILL CONTINUE TO TRY CALLING HER.
[2020-10-06 14:04] LABS: Procalcitonin 0.45 ng/mL (0-0.5)
[2020-10-06 14:16] LABS: Alanine Aminotransferase 29 U/L (0-41); Albumin Level 4.2 g/dL (3.5-5.2); Alkaline Phosphatase 172 IU/L (40-130); Blood Urea Nitrogen 66 mg/dL (8-23); C Reactive Protein 88.8 mg/L (0.0-4.9); Calcium 11.2 mg/dL (8.5-10.5); Carbon Dioxide 17 mmol/L (22-29); Chloride 116 mmol/L (98-107); Globulin 4.4 g/dL (1.3-4.6); Glomerular Filtration Rate 30.5 mL/min (90-130); Total Bilirubin 0.4 mg/dL (0.15-1.2); Total Protein 8.6 g/dL (6.6-8.7)
[2020-10-06 14:19] LABS: Specific Gravity, Urine 1.005 (1.005-1.030); Urine Appearance Clear (CLEAR); Urine Color Yellow (Yellow); pH Urine 5 (5-7)
[2020-10-06 14:21] LABS: Add Urine Microscopic? YES; Bilirubin Urine Neg (Negative); Blood Urine 2+ (Negative); Glucose Urine UA 4+ (Normal); Ketones Urine Negative (Negative); Leukocyte Esterase Urine Negative (Negative); Nitrate Urine Negative (Negative); Protein Urine Neg (Negative); Urobilinogen Urine Norm (Negative)
[2020-10-06 14:24] LABS: Hematocrit 68.5 % (42.0-52.0); Osmolality Calculated 420 mOsm/kg (285-295)
[2020-10-06 14:29] LABS: RBC Urine 0-4 /hpf (0-2)
[2020-10-06 14:30] LABS: Add Urine Culture? No; Bacteria Urine 1+ /hpf; Squamous Epithelial Cell Urine 0-4 /hpf (0-5)
[2020-10-06 14:31] LABS: Anion Gap 35.2 (5-19); Potassium 4.2 mmol/L (3.5-5.1)
[2020-10-06 14:32] LABS: Aspartate Amino Transferase 24 U/L (0-40); NT Pro B Type Natriuretic Pept 364 pg/mL (0-125)
[2020-10-06 14:34] LABS: Glucose 1232 mg/dL (65-115); Sodium 164 mmol/L (136-145)
[2020-10-06 14:35] LABS: Lactic Sepsis W/Reflex 5.4 mmol/L (0.5-2.2)
[2020-10-06 14:35] LABS: Creatine Phosphokinase 375 U/L (39-308)
[2020-10-06 15:03] LABS: Ketone (Acetest) Serum Negative (Negative)
[2020-10-06] MEDS: insulin regular-human 250 UNIT in sodium chloride 0.9% 250 ML 10 UNIT IV (15:11)
[2020-10-06] MEDS: sodium chloride 0.9% 1,000 ML 999 ML IV ×5 (15:11→21:40)
[2020-10-06 15:37] LABS: Fibrinogen 438 mg/dL (174-498)
[2020-10-06 15:39] LABS: Reflex Lactate Order REFLEX LACTIC ORDERD
[2020-10-06 15:55] LABS: D Dimer >= 20.00 ug/mIFEU (0-0.59)
[2020-10-06 16:14] LABS: Lactic Acid level (Lactate) 4.8 mmol/L (0.5-2.2)
[2020-10-06 16:30] LABS: Glucose Point of Care > 600 mg/dL (70-110)
[2020-10-06 17:39] LABS: Glucose Point of Care > 600 mg/dL (70-110)
[2020-10-06 17:40] VITALS: BP 114/79; PULSE 105; RESP 16; O2SAT 97
[2020-10-06 18:34] LABS: Glucose Point of Care > 600 mg/dL (70-110)
[2020-10-06 18:43] LABS: SARS Covid-2 Antigen Negative (Negative)
[2020-10-06 18:54] VITALS: BP 127/83; PULSE 99; RESP 15; O2SAT 97
[2020-10-06 19:15] LABS: Anion Gap 21.5 (5-19); Blood Urea Nitrogen 65 mg/dL (8-23); Carbon Dioxide 17 mmol/L (22-29); Chloride 133 mmol/L (98-107); Glomerular Filtration Rate 26.3 mL/min (90-130)
[2020-10-06 19:23] LABS: Osmolality Calculated 411 mOsm/kg (285-295)
[2020-10-06 19:26] LABS: Lactic Sepsis W/Reflex 4.9 mmol/L (0.5-2.2)
[2020-10-06 19:29] LABS: Glucose 902 mg/dL (65-115); Potassium 2.5 mmol/L (3.5-5.1); Sodium 169 mmol/L (136-145)
[2020-10-06 20:18] LABS: Glucose Point of Care > 600 mg/dL (70-110)
[2020-10-06 20:32] LABS: Reflex Lactate Order REFLEX LACTIC ORDERD
[2020-10-06] MEDS: lidocaine 1% 5 ML in potassium chloride premix 100 ML 25 ML IV (20:32)
[2020-10-06 21:25] LABS: Glucose Point of Care > 600 mg/dL (70-110)
[2020-10-06 21:34] LABS: Lactic Acid level (Lactate) 5.2 mmol/L (0.5-2.2)
[2020-10-06 22:26] LABS: ABG PCO2 33.4 mmHg (35-45); ABG PH Result 7.35 (7.35-7.45); Arterial Blood Gas Hematocrit 48.4 % (42-52); Base Excess ABG -6.1 mmol/L (-2.0-2.0); Blood Gas Operator Identificat HARKR; Blood Gas Sample Site Brachial, left; Blood Gas Sample Type Arterial; HCO3 ABG 18.4 mmol/L (22-26); Oxygen Device NC
[2020-10-06 22:54] LABS: Glucose Point of Care > 600 mg/dL (70-110)
[2020-10-06 23:00] VITALS: RESP 32; O2SAT 97
[2020-10-06] MEDS: ondansetron 2 mg/ML SDV 2 mL 4 MG IVP (23:00)
[2020-10-06] MEDS: morphine 4 mg/mL SDV 1 mL IVP (23:00)
[2020-10-07] VITALS (70 sets, daily range): BP systolic 68–145; BP diastolic 50–93; PULSE 108–151; RESP 18–42; TEMP 38.4–39.4; O2SAT 85–98; BMI 27.1; BMI 28.9
[2020-10-07 00:13] LABS: Glucose Point of Care > 600 mg/dL (70-110)
[2020-10-07] MEDS: sodium chlor 0.9% + KCl 40 mEq 40 MEQ/1,000 ML BAG 150 MEQ IV (00:59)
[2020-10-07 01:58] LABS: Glucose Point of Care 356 mg/dL (70-110)
[2020-10-07] MEDS: azithromycin 250 MG in sodium chloride 0.9% 250 ML IV (02:45)
[2020-10-07 02:50] LABS: Glucose Point of Care 208 mg/dL (70-110)
[2020-10-07] MEDS: morphine 4 mg/mL SDV 1 mL IVP (03:03)
[2020-10-07 03:22] LABS: Glucose Point of Care 196 mg/dL (70-110)
[2020-10-07 05:12] LABS: Glucose Point of Care 528 mg/dL (70-110)
[2020-10-07 05:13] LABS: Basophils # 0.1 10^3/uL (0.0-0.1); Basophils % 0.3 %; Hematocrit 52.9 % (42.0-52.0); Hemoglobin 16.5 g/dL (11.7-16.6); Lymphocytes # 1.5 10^3/uL (0.8-4.8); Lymphocytes % 6.2 %; Mean Corpuscular HGB Conc 31.2 g/dL (30.0-36.0); Mean Corpuscular Hemoglobin 28.9 pg (28.0-34.0); Mean Corpuscular Volume 92.8 fL (80-94); Mean Platelet Volume 11.3 fL (7.4-10.4); Monocytes # 2.2 10^3/uL (0.2-0.9); Monocytes % 9.3 %; Neutrophils # 19.93 10^3/uL (1.8-7.7); Neutrophils % 83.1 %; Nucleated Red Blood Cells % 0 %; Platelet Count 250 10^3/cmm (130-400); Red Cell Distribution Width 13.7 % (12.1-15.1)
[2020-10-07 05:33] LABS: Lactate (Lactic Acid level) 3.2 mmol/L (0.5-2.2)
[2020-10-07] MEDS: haloperidol inj 5 mg/mL INJ 1 mL IVP (05:35)
[2020-10-07 05:38] LABS: Glucose Point of Care 209 mg/dL (70-110)
[2020-10-07 05:52] LABS: Blood Urea Nitrogen 60 mg/dL (8-23); Glomerular Filtration Rate 32.2 mL/min (90-130); Glucose 223 mg/dL (65-115)
[2020-10-07 05:53] LABS: Anion Gap 20.4 (5-19); Calcium 8.6 mg/dL (8.5-10.5); Carbon Dioxide 22 mmol/L (22-29); Osmolality Calculated 396 mOsm/kg (285-295); Potassium 4.4 mmol/L (3.5-5.1)
[2020-10-07 05:55] LABS: Sodium > 181 mmol/L (136-145)
[2020-10-07 05:55] LABS: ABG PCO2 40.3 mmHg (35-45); ABG PH Result 7.34 (7.35-7.45); Alveolar-Arterial Oxygen Gradi 6.4 mmHg (5-10); Arterial Blood Gas Hematocrit 52.9 % (42-52); Blood Gas Operator Identificat HARKR; Blood Gas Sample Site Brachial, left; Blood Gas Sample Type Arterial; Carboxyhemoglobin 0.7 %THgb (0.4-20.1); HCO3 ABG 21.6 mmol/L (22-26); HGB O2 Sat 86.4 % (95-100); Ionized Calcium Level - ABG 1.2 mmol/L (1.1-1.4); Methemoglobin 0.7 % (0.4-1.5); Oxygen Device NRB; Oxygen Saturation ABG 87.6; PO2 ABG 51.7 mmHg (80.0-100.0); Potassium Level - ABG 3.9 mmol/L (3.5-5.0); Sodium Level - ABG > 182.0 mmol/L (131-143); Total Hemoglobin 17.3 g/dL (14-18)
[2020-10-07] MEDS: propofol 1,000 MG/100 ML INJ 10.89 MG IV ×2 (06:13→06:19)
--- NOTE | 2020-10-07 06:14 | XRR_ITS ---
PROCEDURE INFORMATION: Exam: XR Chest Exam date and time: 10/07/2020 6:14 AM Age: 60 years old Clinical indication: Device placement; Ett placement (vent status); Patient HX: Check S/P et placement; Additional info: Et and og placement TECHNIQUE: Imaging protocol: XR of the chest. Views: 1 view. COMPARISON: CR XR chest 1V portable [id number] 10/06/2020 12:55 PM FINDINGS: Tubes, catheters and devices: An endotracheal tube is present with the tip 6 cm above the carey. Lungs: There is increasing opacification of the left base consistent with worsening basilar pneumonia/atelectasis. Pleural spaces: Unremarkable. No pleural effusion. No pneumothorax. Heart/Mediastinum: Unremarkable. No cardiomegaly. Bones/joints: Unremarkable. XR/XR chest 1V portable [id number] IMPRESSION: Worsening left basilar pneumonia/atelectasis.
[2020-10-07] MEDS: rocuronium 10 mg/mL INJ 5mL 100 MG IV (06:19)
[2020-10-07] MEDS: fentaNYL 50 mcg/mL INJ 2mL 90.7 MCG IVP (06:23)
[2020-10-07 06:57] LABS: Glucose Point of Care 217 mg/dL (70-110)
[2020-10-07] MEDS: fentaNYL 50 mcg/mL INJ 2mL 100 MCG IVP ×2 (07:16→08:05)
[2020-10-07 07:48] LABS: Blood Urea Nitrogen 61 mg/dL (8-23); Calcium 7.3 mg/dL (8.5-10.5); Carbon Dioxide 17 mmol/L (22-29); Glucose 231 mg/dL (65-115); Osmolality Calculated 387 mOsm/kg (285-295)
[2020-10-07 07:54] LABS: Sodium 176 mmol/L (136-145)
[2020-10-07 08:32] LABS: Glucose Point of Care 362 mg/dL (70-110)
[2020-10-07] MEDS: dextrose 5%-sod chloride 0.45% 1,000 ML 25 ML IV (08:36)
[2020-10-07 08:51] LABS: Chloride > 145 mmol/L (98-107)
[2020-10-07 09:23] LABS: Glucose Point of Care 270 mg/dL (70-110)
[2020-10-07] MEDS: acetaminophen 1,000 MG/100 ML PIGGYBACK 400 MG IV (09:35)
[2020-10-07 10:02] LABS: Glucose Point of Care 362 mg/dL (70-110)
[2020-10-07 10:02] LABS: Glucose Point of Care 245 mg/dL (70-110)
[2020-10-07] MEDS: heparin 5,000 unit/mL INJ 1 mL 5000 UNIT IVP (10:05)
--- NOTE | 2020-10-07 10:19 | P.HP_ITS ---
Providers/Chief Complaint Chief Complaint: COVID +/ RESPIRATORY DISTRESS History of Present Illness Oc Duval is a 60 year old male who presented to the emergency department after being found down. It is unknown how long he was down. On arrival to the emergency department blood sugar was markedly elevated. Respiratory decompensation occurred in the emergency department requiring endotracheal intubation. Patient is not able to give me history. I spoke with his son, who is communicating with family members who relates that he had not been to a physician in many years, and had no specific medical problems that they were aware of. Review of Systems General: Reports: ROS unobtainable due to endotracheal tube Medications/Allergies Home Medications Medication Instructions Recorded Confirmed Last Taken Type Unable to Assess 10/06/20 10/06/20 Unknown History Allergies Allergy/AdvReac Type Severity Reaction Status Date / Time No Known Allergies Allergy Verified 10/07/20 05:55 PFSH Acute PFSH: Social History (Updated 10/07/20 @ 11:43 by Tomer Murray MD) Smoking and tobacco status: never smoked Alcohol intake: never Supplemental PFSH Information: Son relates he knows of no surgeries, or significant medical history but patient does not seek medical care and only takes supplements. He does not believe there is any significant family history. He relates that his father does not smoke or drink. Vitals/I&O/Wt Last Vital Signs Temp 101.2 F H 10/07/20 10:12 Pulse 144 H 10/07/20 10:12 Resp 24 H 10/07/20 10:12 BP 68/51 10/07/20 10:12 Pulse Ox 92 10/07/20 10:12 10/06/20 10/07/20 10/07/20 22:59 06:59 14:59 Intake Total 4162.667 / 4162.667 477.422 / 4640.089 156.741 / 156.741 Balance 4162.667 / 4162.667 477.422 / 4640.089 156.741 / 156.741 Weight last 48 hrs Weight 90.718 kg Physical Exam Narrative: EXAM NARRATIVE: General exam is a sedated and intubated male, with some mottling of his lower extremities HEENT: Pupils equally round. Oropharynx demonstrates endotracheal tube and orogastric tube Neck is supple no lymphadenopathy or thyromegaly Cardiovascular tachycardic, no murmur Lungs coarse breath sounds bilaterally Abdomen is soft. A few bowel sounds are noted. No obvious organomegaly demonstrates Peter. Small amount of urine is noted in the tube Extremities no cyanosis clubbing or edema, cap refill around 2 seconds Neurologic: Sedated Urinary Catheter Management^: Peter: Cath Placed During This Visit: yes Reason for Continuing Indwelling Catheter: Accurate Measurement of Urinary Output in Critically Ill Patients Urinary Catheter Date of Insertion: 10/06/20 Urinary Catheter Time of Insertion: 13:40 Sepsis: Date exam was performed: 10/07/20 Time exam was performed: 09:00 Data : 10/07/20 05:00 10/07/20 10:11 Micro: Microbiology 10/06/20 15:04 Blood Culture - Preliminary Blood SPECIMEN COLLECTED 10/06/20 13:35 Blood Culture - Preliminary Blood SPECIMEN COLLECTED Other data: Last ABG demonstrates a pH of 7.17, PCO2 of 55, PO2 of 81 Anion gap is 20 Lactate 3.2 Calcium 8.3 CK 375 Procalcitonin 0.45 Urinalysis with no white blood cells, 0-4 reds. Serum ketones negative Rapid Covid negative Chest x-ray left lower lobe infiltrate CT head no acute changes Blood cultures have been collected EKG on admission demonstrated sinus tachycardia with a rate of 115, nonspecific ST-T wave changes, normal axis. Troponin was not checked BNP 364 A&P Assessment and plan (1) Acute hypoxemic respiratory failure: Requiring endotracheal intubation Etiology may be severe hyponatremia along with pneumonia At this point sodium has not improved and will initiate D5W with his insulin drip, with frequent rechecks of sodium. Initially will start at 75 cc an hour. Goal is to prevent any further climb of sodium or chloride. Status: Acute (2) Hyperosmolar (nonketotic) coma: Insulin drip Status: Acute (3) Hypernatremia: Changed to D5W. Close follow-up of electrolytes Status: Acute (4) Acute kidney injury: Repeat CK Close follow-up of renal function Although he is somewhat oliguric renal function has not worsened overnight. Status: Acute (5) Pneumonia: IV antibiotics consisting of vancomycin, Zosyn Sputum culture MRSA PCR, bacterial antigen, Legionella Covid PCR Continue endotracheal intubation, pulmonary critical care consultation. Status: Acute (6) Elevated d-dimer: Presentation could be concerning for pulmonary embolism Heparin drip started Note tachycardia, hypotension, respiratory failure Check echocardiogram Status: Acute (7) Hypotension: Currently on norepinephrine, and vasopressin Wean as tolerated Hydrocortisone 100 mg IV x1 in ER, and every 8 hours. Check EKG, troponin, echocardiogram Status: Acute (8) Septic shock: See above Status: Acute (9) Rhabdomyolysis: Repeat CK Status: Acute Additional A&P Information Family indicates aggressive interventions, but no CPR Heparin drip will suffice for DVT prophylaxis Attestations Medical Necessity Statement*: Will need greater than 2 midnight stay secondary respiratory failure, septic shock requiring pressors Critical Care Time: Critical Care Time (min): 103 Other Attestations: The high probability of a clinically significant, sudden or life threatening deterioration of the patient's [pulmonary, renal, cardiac] system(s) required my full and direct attention, intervention and personal management. The critical care time is as shown. This time is in addition to time spent performing any reported procedures but includes the following: [x] Data and vital sign review and interpretation [x] Patient assessment, examination and intervention [x] Documentation [x] Medication orders and management Coding Level of Care Code Acute Product Communications Manager for [facility] Fwd Diagnoses Acute hypoxemic respiratory failure J96.01 Hyperosmolar (nonketotic) coma E11.01 Hypernatremia E87.0 Acute kidney injury N17.9 Pneumonia J18.9 Elevated d-dimer R79.89 Hypotension I95.9 Septic shock A41.9; R65.21 Rhabdomyolysis M62.82
[2020-10-07 10:23] LABS: ABG PCO2 55.3 mmHg (35-45); Arterial Blood Gas Hematocrit 52.8 % (42-52); Base Excess ABG -9.1 mmol/L (-2.0-2.0); Blood Gas Allen Test Pos; Blood Gas Operator Identificat BROMA; Blood Gas Sample Site Brachial, left; Blood Gas Sample Type Arterial; HCO3 ABG 20.2 mmol/L (22-26); Oxygen Device VENT; PO2 ABG 81.5 mmHg (80.0-100.0)
[2020-10-07 10:24] LABS: ABG PH Result 7.17 (7.35-7.45)
[2020-10-07] MEDS: heparin drip 25,000 UNIT/500 ML PREMIX 21.77 UNIT IV (10:24)
[2020-10-07] MEDS: sodium chloride 0.9% 500 ML 999 ML IV (10:28)
[2020-10-07] MEDS: bacitracin ointment Pkt 1 EACH TOPICAL (10:38)
[2020-10-07 10:41] LABS: Carbon Dioxide 23 mmol/L (22-29); Potassium 4.1 mmol/L (3.5-5.1)
[2020-10-07] MEDS: hydrocortisone 100 mg/2 mL SDV IVP ×2 (10:52→20:08)
[2020-10-07 11:07] LABS: Blood Urea Nitrogen 62 mg/dL (8-23); Calcium 8.3 mg/dL (8.5-10.5); Glomerular Filtration Rate 19.8 mL/min (90-130); Glucose 243 mg/dL (65-115); Osmolality Calculated 394 mOsm/kg (285-295)
[2020-10-07 11:09] LABS: Anion Gap 20.9 (5-19); Chloride > 141 mmol/L (98-107); Sodium 179 mmol/L (136-145)
[2020-10-07 11:13] LABS: Glucose Point of Care 171 mg/dL (70-110)
[2020-10-07 11:13] LABS: Glucose Point of Care 495 mg/dL (70-110)
[2020-10-07] MEDS: insulin regular-human 250 UNIT in sodium chloride 0.9% 250 ML 35 UNIT IV (11:30)
--- NOTE | 2020-10-07 13:37 | PC.NURSE ---
1230-PT ARRIVED TO ICU VIA ED JATINDER. IV RATES: LEVOPHED 125MLS/HR INSULIN 35 MLS/HR DIPROVAN 17 MCQ/KG/MIN HEPARIN 21.7 MLS/HR VASOPRESSIN 0.03 UNITS/MIN D5 1/2 NS 150 MLS/HR D5 1/2 NS D/C'D UPON ARRIVAL. D5W STARTED AT 75 MLS/HR PER VERBAL ORDER VIA DR ACHARYA. DR VELOZ AT PT'S BEDSIDE. GAVE VERBAL ORDER TO CONTINUE WITH CURRENT LEVOPHED DOSING. VASOPRESSIN INCREASED TO 0.04 UNITS/MIN. DIPROVAN PAUSED. DATAR AWARE THAT PT'S BLOOD GLUCOSE WAS 217 UPON ARRIVAL AT 1232 AND THAT INSULIN GTT WAS DECREASED TO 15MLS. BLOOD GLUCOSE RECHECKED AT 1256 WITH 128 RESULT. INSULIN GTT DECREASED TO 5 MLS/HR. DATAR AWARE. 1315 BLOOD GLUCOSE RECHECKED WITH 104 RESULT. INSULIN GTT PAUSED. WILL RESTART PER ICU PROTOCOL PER DR VELOZ. PT UNRESPONSIVE TO VERBAL OR PAINFUL STIMULI.
[2020-10-07] MEDS: dextrose 5% 1,000 ML 75 ML IV (13:44)
[2020-10-07 14:09] LABS: Blood Urea Nitrogen 69 mg/dL (8-23); Calcium 7.8 mg/dL (8.5-10.5); Carbon Dioxide 19 mmol/L (22-29); Glomerular Filtration Rate 16.7 mL/min (90-130); Glucose 133 mg/dL (65-115); Potassium 3.9 mmol/L (3.5-5.1)
[2020-10-07 14:14] LABS: Osmolality Calculated 392 mOsm/kg (285-295); Thyroid Stimulating Hormone 0.25 uIU/mL (0.27-4.20)
[2020-10-07 14:47] LABS: Anion Gap 22.9 (5-19); Chloride 142 mmol/L (98-107); Creatine Phosphokinase 2188 U/L (39-308); Sodium 180 mmol/L (136-145); Troponin T (5th) Once 158 ng/L (0-15)
[2020-10-07 15:12] LABS: Glucose Point of Care 217 mg/dL (70-110)
[2020-10-07 15:12] LABS: Glucose Point of Care 128 mg/dL (70-110)
[2020-10-07 15:12] LABS: Glucose Point of Care 104 mg/dL (70-110)
[2020-10-07 15:12] LABS: Glucose Point of Care 90 mg/dL (70-110)
[2020-10-07 15:12] LABS: Glucose Point of Care 103 mg/dL (70-110)
[2020-10-07] MEDS: vancomycin 1,500 MG/300 ML PIGGYBACK 200 MG IV (15:21)
[2020-10-07] MEDS: famotidine 20 mg/2 mL INJ IVP (15:22)
[2020-10-07] MEDS: norepinephrine 8 MG in dextrose 5 % 500 ML 90 MG IV (15:44)
[2020-10-07 15:50] LABS: Glucose Point of Care 119 mg/dL (70-110)
[2020-10-07] MEDS: piperacillin-tazobactam 3.375 GM in sodium chloride 0.9% (plus) 50 ML IV ×2 (16:15→23:02)
[2020-10-07 17:19] LABS: ABG PCO2 41.2 mmHg (35-45); ABG PH Result 7.25 (7.35-7.45); Arterial Blood Gas Hematocrit 48.8 % (42-52); Base Excess ABG -8.6 mmol/L (-2.0-2.0); Blood Gas Operator Identificat GD; Blood Gas Sample Site Not specified; Blood Gas Sample Type Arterial; HCO3 ABG 18.2 mmol/L (22-26); Oxygen Device VENT; PO2 ABG 74.9 mmHg (80.0-100.0)
[2020-10-07 17:31] LABS: Glucose Point of Care 237 mg/dL (70-110)
[2020-10-07 17:31] LABS: Glucose Point of Care 119 mg/dL (70-110)
--- NOTE | 2020-10-07 17:48 | XRR_ITS ---
PROCEDURE INFORMATION: Exam: XR Chest Exam date and time: 10/07/2020 5:48 PM Age: 60 years old Clinical indication: Device placement; Ng tube; Additional info: For og tube placement TECHNIQUE: Imaging protocol: XR of the chest. Views: 1 view. COMPARISON: CR XR chest 1V portable [id number] 10/07/2020 6:10 AM FINDINGS: Tubes, catheters and devices: Endotracheal tube is present about 6.5 cm above carey. Enteric tube is in the stomach. Lungs: Patchy bilateral infrahilar lower lobe airspace opacities are increased from comparison. Background mild severity emphysema. Pleural spaces: Unremarkable. No pleural effusion. No pneumothorax. Heart/Mediastinum: Unremarkable. No cardiomegaly. Bones/joints: Unremarkable. XR/XR chest 1V portable [id number] IMPRESSION: Enteric tube within stomach.
[2020-10-07 17:58] LABS: Partial Thromboplastin Time 78.3 SECONDS (23.9-36.7)
[2020-10-07 18:13] LABS: Blood Urea Nitrogen 60 mg/dL (8-23); Calcium 7.1 mg/dL (8.5-10.5); Carbon Dioxide 18 mmol/L (22-29); Chloride 139 mmol/L (98-107); Glomerular Filtration Rate 18.4 mL/min (90-130); Glucose 108 mg/dL (65-115); Osmolality Calculated 377 mOsm/kg (285-295)
[2020-10-07 18:16] LABS: Anion Gap 22.4 (5-19); Potassium 4.4 mmol/L (3.5-5.1)
[2020-10-07 18:17] LABS: Sodium 175 mmol/L (136-145)
[2020-10-07 18:20] LABS: Free T4 Free Thyroxine 0.85 ng/dL (0.82-1.77); T3 Free 1.8 PG/ML (2.0-4.4)
[2020-10-07 18:59] LABS: Glucose Point of Care 102 mg/dL (70-110)
[2020-10-07 20:24] LABS: Glucose Point of Care 99 mg/dL (70-110)
--- NOTE | 2020-10-07 20:41 | PM.CONSULT ---
Providers/Reason For Consult Consulting Physician/Specialty*: Mani Crawley MD/Pulmonary Critical Care Consult Reason for Consult*: Altered mental status secondary to DKA and severe hypernatremia Requesting Physician: Tomer Murray MD Attending Physician: Tomer Murray MD History of Present Illness History of Present Illness Oc Duval is a 60 year old male brought to emergency department after being found down. It is unknown how long he was down. patient is not able to give history. As per son, who is communicating with family members who relates that he had not been to a physician in many years, and had no specific medical problems that they were aware of. Patient's was admitted to ICU with COVID-19 pneumonia and yesterday. He was not responding to phone and so wellness check was performed and police and fire department had been both called prior to EMS. Patient was also diagnosed with COVID-19 last known well is unknown. PCR testing sent from ER is pending. Admission labs revealed glucose > 1200, anion gap 35, bicarb 17, ketones negative, sodium 180-started on insulin drip and once glucose < 150 started on D5 W and transferred to ICU. Review of Systems General: Reports: ROS unobtainable due to endotracheal tube, ROS unobtainable due to medical condition and ROS unobtainable due to mental status Meds/Allergies Home Medications and Allergies Home Medications Medication Instructions Recorded Confirmed Last Taken Type Unable to Assess 10/06/20 10/06/20 Unknown History Allergies Allergy/AdvReac Type Severity Reaction Status Date / Time No Known Allergies Allergy Verified 10/07/20 05:55 Current Medications Current Medications Generic Name Dose Route Start Last Admin Trade Name Ashley PRN Reason Stop Dose Admin Famotidine 20 mg 10/07/20 14:30 10/07/20 15:22 Famotidine 20 Mg/2 Ml Inj IVP 20 mg Q12H KARTIK Administration Hydrocortisone Sodium Succinate 100 mg 10/07/20 18:30 10/07/20 20:08 Hydrocortisone 100 Mg/2 Ml Sdv IVP 100 mg Q8H KARTIK Administration Insulin Human Regular 250 unit 252.5 mls @ 0 mls/hr 10/06/20 14:45 10/07/20 18:15 / Sodium Chloride IV 0 mls/hr .Q0M KARTIK 0 mls/hr Titration Protocol Per Protocol Propofol 1,000 mg in 100 mls @ 0 mls/hr 10/07/20 06:15 10/07/20 12:05 Diprivan IV 12 mcg/kg/min .Q0M KARTIK 6.53 mls/hr Titration Protocol Per Protocol Norepinephrine Bitartrate 4 mg 254 mls @ 0 mls/hr 10/07/20 07:45 10/07/20 16:22 / Dextrose IV Infused .Q0M KARTIK Titration Protocol Per Protocol Heparin Sodium/Sodium Chloride 25,000 unit in 500 mls @ 21.772 mls/hr 10/07/20 09:45 10/07/20 10:24 Heparin Drip IV 12 unit/kg/hr .[id number] KARTIK 21.77 mls/hr Administration 12 UNIT/KG/HR Vasopressin 40 unit/ Sodium 40 mls @ 0.03 mls/min 10/07/20 10:30 10/07/20 10:48 Chloride IV 0.03 mls/min CONT KARTIK Administration Dextrose 1,000 mls @ 40 mls/hr 10/07/20 12:00 10/07/20 13:44 D5w IV 75 mls/hr .Q24H KARTIK Administration Piperacillin Sod/Tazobactam 50 mls @ 12.5 mls/hr 10/07/20 15:00 10/07/20 16:15 Sod 3.375 gm/ Sodium Chloride IV 12.5 mls/hr Q8H KARTIK Administration Protocol Vancomycin/PEG/NADA/Lysine/Water 1,500 mg in 300 mls @ 200 mls/hr 10/07/20 13:30 10/07/20 15:21 Vancocin IV 200 mls/hr Q36H KARTIK Administration Norepinephrine Bitartrate 8 mg 508 mls @ 0 mls/hr 10/07/20 14:30 10/07/20 19:27 / Dextrose IV 9.97 mcg/min .Q0M KARTIK 38 mls/hr Titration Protocol Per Protocol PFSH Acute PFSH: Social History Smoking and tobacco status: never smoked Alcohol intake: never Vitals/I&O/Wt Last Vital Signs Temp 101.9 F H 10/07/20 11:27 Pulse 119 H 10/07/20 20:15 Resp 24 H 10/07/20 18:13 BP 97/64 10/07/20 20:15 Pulse Ox 89 L 10/07/20 20:15 10/07/20 10/07/20 10/07/20 06:59 14:59 22:59 Intake Total 1354.922 / 5517.589 1333.061 / 1333.061 379.192 / 1712.253 Output Total 120 / 120 Balance 1354.922 / 5517.589 1333.061 / 1333.061 259.192 / 1592.253 Weight last 48 hrs Weight 213 lb 8 oz Weight 200 lb Physical Exam Narrative: EXAM NARRATIVE: PHYSICAL EXAM: General: lying in bed, sedated and intubated. HEENT:NCAT, PERRLA, EOMI Neck: Supple Lungs: Clear, Heart: s1/s2, RRR Abd: soft, NT, ND, BS + Normoactive Extremities: No edema HISTORY TEACHER: sedated and limited HISTORY TEACHER exam possible. SKIN: no rash Urinary Catheter Management^: Peter: Cath Placed During This Visit: yes Reason for Continuing Indwelling Catheter: Accurate Measurement of Urinary Output in Critically Ill Patients Urinary Catheter Date of Insertion: 10/06/20 Urinary Catheter Time of Insertion: 13:40 Data Labs: Other Labs: Laboratory Results WBC 24.0 10^3/uL (4.0 -10.0) H 10/07/20 05:00 RBC 5.70 10^6/uL (4.1 -5.3) H 10/07/20 05:00 Hgb 16.5 g/dL (11.7-1 6.6) 10/07/20 05:00 Hct 52.9 % (42.0-52.0 ) H 10/07/20 05:00 MCV 92.8 fL (80-94) D 10/07/20 05:00 MCH 28.9 pg (28.0-34. 0) 10/07/20 05:00 MCHC 31.2 g/dL (30.0-3 6.0) D 10/07/20 05:00 RDW 13.7 % (12.1-15.1 ) 10/07/20 05:00 Plt Count 250 10^3/cmm (130 -400) 10/07/20 05:00 MPV 11.3 fL (7.4-10.4 ) H 10/07/20 05:00 Neut % (Auto) 83.1 % 10/07/20 05:00 Lymph % (Auto) 6.2 % 10/07/20 05:00 [place] % (Auto) 9.3 % 10/07/20 05:00 Eos % (Auto) 0.0 % 10/07/20 05:00 Baso % (Auto) 0.3 % 10/07/20 05:00 Neut # (Auto) 19.93 10^3/uL (1. 8-7.7) H 10/07/20 05:00 Lymph # (Auto) 1.5 10^3/uL (0.8- 4.8) 10/07/20 05:00 Freestone # (Auto) 2.2 10^3/uL (0.2- 0.9) H 10/07/20 05:00 Eos # (Auto) 0.0 10^3/uL (0.0- 0.8) 10/07/20 05:00 Baso # (Auto) 0.1 10^3/uL (0.0- 0.1) 10/07/20 05:00 Nucleated RBC % (a uto) 0 % 10/07/20 05:00 Nucleated RBCs # 0.0 /100WBC 10/07/20 05:00 APTT 78.3 SECONDS (23. 9-36.7) H 10/07/20 16:42 Fibrinogen 438 mg/dL (174-49 8) 10/06/20 15:04 D-Dimer >= 20.00 ug/mIFEU (0-0.59) H 10/06/20 15:04 Specimen Type Arterial 10/07/20 17:00 Sample Site Not specified 10/07/20 17:00 ABG pH 7.25 (7.35-7.45) L 10/07/20 17:00 ABG pCO2 41.2 mmHg (35-45) 10/07/20 17:00 ABG pO2 74.9 mmHg (80.0-1 00.0) L 10/07/20 17:00 ABG HCO3 18.2 mmol/L (22-2 6) L 10/07/20 17:00 ABG O2 Saturation 87.6 10/07/20 05:46 ABG Base Excess -8.6 mmol/L (-2.0 -2.0) L 10/07/20 17:00 Desmond Test N/a 10/07/20 17:00 A-a O2 Gradient 6.4 mmHg (5-10) 10/07/20 05:46 Hematocrit 48.8 % (42-52) 10/07/20 17:00 Hgb O2 Saturation 86.4 % (95-100) L 10/07/20 05:46 Carboxyhemoglobin 0.7 %THgb (0.4-20 .1) 10/07/20 05:46 Methemoglobin 0.7 % (0.4-1.5) 10/07/20 05:46 Total Hemoglobin 17.3 g/dL (14-18) 10/07/20 05:46 Sodium > 182.0 mmol/L (1 31-143) H 10/07/20 05:46 Potassium 3.9 mmol/L (3.5-5 .0) 10/07/20 05:46 Glucose 252.0 mg/dL (70-1 15) H 10/07/20 05:46 Ionized Calcium 1.2 mmol/L (1.1-1 .4) 10/07/20 05:46 O2 Delivery Device Vent 10/07/20 17:00 O2 Liters/Min 15.0 % 10/07/20 05:46 FiO2 100.0 % 10/07/20 17:00 Tidal Volume 0.50 10/07/20 17:00 PEEP 10.0 cmH20 10/07/20 17:00 Student Officer ID Gd 10/07/20 17:00 Sodium 175 mmol/L (136-1 45) H* 10/07/20 16:42 Potassium 4.4 mmol/L (3.5-5 .1) 10/07/20 16:42 Chloride 139 mmol/L (98-10 7) H 10/07/20 16:42 Carbon Dioxide 18 mmol/L (22-29) L 10/07/20 16:42 Anion Gap 22.4 (5-19) H 10/07/20 16:42 BUN 60 mg/dL (8-23) H 10/07/20 16:42 Creatinine 3.4 mg/dL (0.7-1. 2) H 10/07/20 16:42 GFR Calculation 18.4 mL/min (90-1 30) L 10/07/20 16:42 Glucose 108 mg/dL (65-115 ) 10/07/20 16:42 POC Glucose 155 mg/dL (70-110 ) H 10/07/20 21:14 Calculated Osmolal ity 377 mOsm/kg (285- 295) H 10/07/20 16:42 Lactic Acid 4.9 mmol/L (0.5-2 .2) H* 10/06/20 18:43 Lactic Acid (Sepsi s) 5.2 mmol/L (0.5-2 .2) H* 10/06/20 21:08 Lactate 3.2 mmol/L (0.5-2 .2) H 10/07/20 05:00 Calcium 7.1 mg/dL (8.5-10 .5) L 10/07/20 16:42 Total Bilirubin 0.4 mg/dL (0.15-1 .2) 10/06/20 12:20 AST 24 U/L (0-40) 10/06/20 12:20 ALT 29 U/L (0-41) 10/06/20 12:20 Alkaline Phosphata se 172 IU/L (40-130) H 10/06/20 12:20 Creatine Kinase 2188 U/L (39-308) H* 10/07/20 12:52 Troponin T Gen 5 n g/L 158 ng/L (0-15) H* 10/07/20 12:52 C-Reactive Protein 88.8 mg/L (0.0-4. 9) H 10/06/20 12:20 NT-Pro-B Natriuret Pep 364 pg/mL (0-125) H 10/06/20 12:20 Total Protein 8.6 g/dL (6.6-8.7 ) 10/06/20 12:20 Albumin 4.2 g/dL (3.5-5.2 ) 10/06/20 12:20 Globulin 4.4 g/dL (1.3-4.6 ) 10/06/20 12:20 Procalcitonin 0.45 ng/mL (0-0.5 ) 10/06/20 12:20 TSH 0.25 uIU/mL (0.27 -4.20) L 10/07/20 12:52 Free T4 0.85 ng/dL (0.82- 1.77) 10/07/20 16:42 Free T3 1.8 PG/ML (2.0-4. 4) L 10/07/20 16:42 Urine Color Yellow (Yellow) 10/06/20 13:35 Urine Appearance Clear (CLEAR) 10/06/20 13:35 Urine pH 5 (5-7) 10/06/20 13:35 Ur Specific Gravit y 1.005 (1.005-1.0 30) 10/06/20 13:35 Urine Protein Neg (Negative) 10/06/20 13:35 Urine Glucose (UA) 4+ (Normal) H 10/06/20 13:35 Urine Ketones Negative (Negati ve) 10/06/20 13:35 Urine Blood 2+ (Negative) H 10/06/20 13:35 Urine Nitrate Negative (Negati ve) 10/06/20 13:35 Urine Bilirubin Neg (Negative) 10/06/20 13:35 Urine Urobilinogen Norm mg/dL (Negat jo) 10/06/20 13:35 Ur Leukocyte Lucie ase Negative (Negati ve) 10/06/20 13:35 Urine RBC 0-4 /hpf (0-2) H 10/06/20 13:35 Urine WBC None /hpf (0-5) 10/06/20 13:35 Ur Squamous Epith Cells 0-4 /hpf (0-5) H 10/06/20 13:35 Amorphous Sediment Not Reportable 10/06/20 13:35 Urine Bacteria 1+ /hpf (NONE) H 10/06/20 13:35 Serum Ketones Negative (Negati ve) 10/06/20 12:20 SARS-CoV-2 Ag (Rap id) Negative (Negati ve) 10/06/20 17:[address] 10/06/20 12:50 Impression: Minimal cerebral atrophy. Chest X-Ray 10/07/20 17:48 IMPRESSION: Enteric tube within stomach. Micro: Micro: Microbiology 10/06/20 15:04 Blood Culture - Pr eliminary Blood NEGATIVE TO TALA E 10/06/20 13:35 Blood Culture - Pr eliminary Blood NEGATIVE TO TALA E A&P Assessment and plan (1) Hypovolemic shock: Status: Acute (2) Acute hypoxemic respiratory failure: Status: Acute (3) Hyperosmolar (nonketotic) coma: Status: Acute (4) Hypernatremia: Status: Acute (5) Acute kidney injury: Status: Acute (6) Rhabdomyolysis: Status: Acute Qualifiers: Rhabdomyolysis type: non-traumatic Qualified Code(s): M62.82 - Rhabdomyolysis (7) Acidosis, lactic: Status: Acute (8) MOF (multiple organ failure): Status: Acute #Hyperosmolar nonketotic coma leading to hypovolemia related circulatory shock, severe Hypernatremia, NABILA, rhabdomyolysis, lactic acidosis #Acute hypoxic respiratory failure-with possible pneumonia and metabolic acidosis #Altered mental status secondary to metabolic encephalopathy -On insulin drip-monitor FSBS every 1 hour -Target glucose 100-200 -Placed on D5W at 75 cc/h to target sodium 171 in 24 hr(patient came with corrected sodium 180) monitor BMP every 4-6 hours -Patient received normal saline boluses in the ED -Currently intubated and sedated on mechanical ventilator -ABG 7.2 5/41/74/18/90 percent on CMV 100%/500/10 -Currently requiring pressors Levophed 30 and vasopressin to keep MAP target is greater than 65; also on hydrocortisone 100 every 8 -Currently on vancomycin and Zosyn for suspected sepsis -Chest x-ray increasing opacification of left base consistent with worsening basilar pneumonia/atelectasis -COVID-19 PCR pending; was COVID-19 positive and was admitted to ICU -Blood cultures pending; will send for, sputum culture, urine culture, urine Legionella antigen,sputum culture, MRSA nares, urine bacterial antigens -On heparin drip for suspected PE due to elevated D-dimer -Echo pending -Rhabdomyolysis-monitor CK CODE STATUS: DNR DVT prophylaxis Heparin GI prophylaxis: H2 lauren family updated Overall prognosis: Critical Case discussed with hospitalist, RN, RT covering the patient Consult Attestations Medical Necessity Statement: Needs close monitoring for severe hyponatremia and hypoxic respiratory failure Time Spent in Patient Care: Greater than 35 minutes (>than 50% of time spent in counselling and/or direct pt care on unit). Critical Care Time: The high probability of a clinically significant, sudden or life threatening deterioration of the patient's [neurological, pulmonary, cardiogenic, renal, endocrine] system(s) required my full and direct attention, intervention and personal management. The critical care time is as shown. This time is in addition to time spent performing any reported procedures but includes the following: [x] Data and vital sign review and interpretation [x] Patient assessment, examination and intervention [x] Documentation [x] Medication orders and management Critical Care Time (min): 65 Coding Level of Care Code New Pt Acute Lead Programmer Analyst for Chg Fwd Patient Type New History Comprehensive Exam Comprehensive Medical Decision Making High Complexity Diagnoses Hypovolemic shock R57.1 Acute hypoxemic respiratory failure J96.01 Hyperosmolar (nonketotic) coma E11.01 Hypernatremia E87.0 Acute kidney injury N17.9 Rhabdomyolysis M62.82 Rhabdomyolysis type: non-traumatic Acidosis, lactic E87.2 MOF (multiple organ failure) Time Spent (min) 65
[2020-10-07 21:29] LABS: Glucose Point of Care 155 mg/dL (70-110)
[2020-10-07] MEDS: acetaminophen 325 mg Tablet 650 MG PO (23:02)
[2020-10-07 23:09] LABS: Glucose Point of Care 142 mg/dL (70-110)
[2020-10-07 23:11] LABS: Blood Urea Nitrogen 74 mg/dL (8-23); Calcium 7.1 mg/dL (8.5-10.5); Carbon Dioxide 19 mmol/L (22-29); Chloride 133 mmol/L (98-107); Glomerular Filtration Rate 11.3 mL/min (90-130); Glucose 222 mg/dL (65-115); Osmolality Calculated 379 mOsm/kg (285-295)
[2020-10-07 23:12] LABS: Partial Thromboplastin Time 129.2 SECONDS (23.9-36.7)
[2020-10-07 23:16] LABS: Sodium 170 mmol/L (136-145)
[2020-10-08] VITALS (11 sets, daily range): BP systolic 72–89; BP diastolic 41–52; PULSE 0–135; RESP 23; TEMP 41.4; O2SAT 85–93
[2020-10-08] MEDS: sodium chloride 0.9% 500 ML 999 ML IV
[2020-10-08] MEDS: EPINEPHrine 2.5 MG in sodium chloride 0.9% 250 ML 6.06 MG IV (00:50)
--- NOTE | 2020-10-08 02:37 | PM.EVENT ---
Event Note Event Note: Through the night patient had escalating pressor requirements. Epinephrine was added as a third pressor at 00:45. Patient had no significant neurological response through the night in spite of being on no sedating medications. He continued to be febrile to 104F overnight. At 2:06PM, rhythm changed to asystole on monitor. He was given total 3 pushes of epinephrine and 2 pushes of atropine, rhythm on monitor remained aystole and PEA. No indication for defibrillation. Patient is listed as a limited resuscitation (ICU admission,mechanical ventilation and defibrillation) therefore chest compressions not performed. In spite of above measures, rhythm remained asystole. Bedside US performed by Dr. Marshall, no meaningful cardiac activity noted. Patient declared at 2:22 AM on 10/08/20. Patient's father Bryan Duval called and updated about demise. Also attempted to call patient's son Ac Mukund x 6, however got voicemail. We have left a message requesting callback.
--- NOTE | 2020-10-08 04:57 | PC.NURSE ---
Patient went into cardiac arrest at 0206 and Code Guero was called. Patient is noted to be a limited resuscitation and chest compressions were not started; however, AED pads were applied. Patient already had a central line and arterial line in place due to his condition prior to arrest. Patient already was intubated as well and was being treated for respiratory distress, septic shock, hypernatremia, rhabdomyolysis and several other acute issues. His PCR COVID test is pending and rapid was negative; however, his spouse Covid positive on 10/06/20. Patient was on multiple vasopressors, epinephrine drip, and several other medications. 0206 - Initial rhythm is asystole 1mg epinephrine IVP Dr. Marshall from ER at bedside with ICU nurses 0207 - Bicarb given IVP; Dr Blank at bedside with ICU nurses and Dr. Marshall 0209 - HR 46; arterial line BP 02/03 0213 - HR 46; 1mg epinephrine IVP 0214 - 1mg Atropine given IVP; 01/03 Art line BP 0215- HR 38 0217 - HR 24; 1mg epinephrine IVP 0218 - HR 0; PEA rhythm 0219 - HR 0; 01/03 Art line BP; PEA rhythm 0220 - TIME OF CALLED. Dr. Blank attempted to call patient's son x 6; she was able to get in touch with patient's father and alert him of pt's . Patient is not a candidate for MTS or Saving Sight per Sarai. Patient's father stated they would like patient to be taken to the same home that the patient's was taken to a few days ago. [facility] in [place], [place] called.
--- NOTE | 2020-10-08 05:56 | PC.NURSE ---
Patient's BP throughout the night slowly went down, even though 3 pressors were added and maxed out. Patient spiked a temperature at 0100 of 104 F. Ice was applied to extremities in attempts to cool the patient following and unsuccessful attempt with Tylenol. Patients heart rate and BP started to decrease, physician was notified, and at 0206 patient when asystole. Refer to code sheet for the following events. Patient was limited resuscitation (no compressions) and the attempts to regain a heart rate were unsuccessful. Patient at 0222.
[2020-10-08 21:18] LABS: Quest SARS-CoV-2 RNA DETECTED (NOT DETECTED)
--- NOTE | 2020-10-08 23:05 | PC.NURSE ---
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
--- NOTE | 2020-10-10 12:54 | P.DES_ITS ---
Discharge Providers DDS Date of Admission: 10/07/20 09:16 Date Summary Completed: 10/10/20 Attending Provider at Admission: Tomer Murray MD Time of : : Attending Provider at Discharge: Tomer Murray MD DS Diagnoses Hospital Diagnoses (1) Hypovolemic shock: (2) Acute hypoxemic respiratory failure: (3) Hyperosmolar (nonketotic) coma: (4) Hypernatremia: (5) Acute kidney injury: (6) Rhabdomyolysis: Qualifiers: Rhabdomyolysis type: non-traumatic Qualified Code(s): M62.82 - Rhabdomyolysis (7) Acidosis, lactic: (8) MOF (multiple organ failure): Reason for Visit Reason for Visit: COVID +/ RESPIRATORY DISTRESS Summary Date and Time of Date of : 10/08/20 Time of : Summary Summary: Oc Duval is a 60-year-old male admitted on October 07, presenting October 06 after being found down for an unknown period of time. Significant other had recently from [facility]. Decompensation led to endotracheal intubation in the emergency department. He was found to be significantly hypernatremic, with acute kidney injury, chest x-ray evidence of pneumonia, markedly elevated D-dimer, markedly low blood pressure, markedly elevated sugar all consistent with septic shock. He was aggressively hydrated in the emergency department. Pressors were started. Broad-spectrum antibiotics were initiated. Fluid and electrolyte management was initiated to lower his sodium. Insulin drip was initiated. Hydrocortisone was also given secondary to persistent hypotension. I have visited with his son on admission who was visiting with multiple other family members regarding directive to care. Family wanted to be very aggressive, but did not want him to have CPR should his illness progress. De spite the above interventions, further pressors were added during the night to no avail, the patient started to run significant fever, and eventually went into asystole and was unable to be revived. Family was informed. Covid PCR did come back positive. Final diagnosis COVID-19 pneumonia, septic shock, severe hypernatremia, acute kidney injury. Discharge Plan Discharge Patient Disposition: Condition: Stable DS Attestations Time Spent in /Discharge Care*: greater than 30 min Quality - AMI: AMI present?: No Quality - Stroke: CVA present?: No Quality - VTE: VTE present?: No Coding Level of Care Code Acute Protective Signal Operations Supervisor for Chg Fwd Diagnoses Hypovolemic shock R57.1 Acute hypoxemic respiratory failure J96.01 Hyperosmolar (nonketotic) coma E11.01 Hypernatremia E87.0 Acute kidney injury N17.9 Rhabdomyolysis M62.82 Rhabdomyolysis type: non-traumatic Acidosis, lactic E87.2 MOF (multiple organ failure)
== END 2020-10-08 02:22 | disposition expired | DRG 871 ==
LOC: ER 10-07 08:33 → ICU 10-07 10:33
PROVIDERS: Emergency Medicine; Family Medicine; Internal Medicine Pulmonary Disease; Admitting Provider Internal Medicine; Emergency Provider Emergency Medicine; Visit Provider Internal Medicine
DX: A41.89 Other specified sepsis (principal); E11.10 Type 2 diabetes mellitus with ketoacidosis without coma; U07.1 COVID-19; J96.01 Acute respiratory failure with hypoxia; J12.82 Pneumonia due to coronavirus disease 2019; R65.21 Severe sepsis with septic shock; G93.41 Metabolic encephalopathy; E87.0 Hyperosmolality and hypernatremia; N17.9 Acute kidney failure, unspecified; M62.82 Rhabdomyolysis; I73.89 Other specified peripheral vascular diseases
CPT/HCPCS: 36415; 36416; 36600; 51702; 70450; 71045; 80048; 80051; 80053; 81001; 82009; 82330; 82550; 82803; 82805; 82962; 83605; 83880; 84145; 84439; 84443; 84481; 84484; 85025; 85378; 85384; 85730; 86140; 87040; 87070; 87426; 87635; 93005; 94002; 94799; 96365; 96366; 96367; 96375; 99291; 99292; C1751; J0171; J0330; J0456; J0696; J1630; J1644; J1720; J1815; J2270; J2405; J2543; J2704; J3010; J3370; J3480; J3490; J7030; J7040; J7050; J7799